=== PATIENT | female | born 1955 | race Caucasian/White ===

== ENCOUNTER 2016-10-10 12:31 | Inpatient (IN) | payer BC, OTHER ==
[~2016-10-10] VITALS: Ht 167.6 cm; Wt 132.0 kg
[~2016-10-10 12:31] MED LIST: ADVIN25050 INH; ALBUAER INH; CMD10 PO; CYAN10005 PO; HYT/2 PO; MOME50SP5; OXYC-57 PO; SNG10 PO; SYN112 PO
[2016-10-10] MEDS ORDERED: ONDANSETRON INJ 2 MG/ML 2 ML VIAL IV STA ×2 (13:13→18:04)
[2016-10-10] MEDS ORDERED: MoRPHine SULFATE 4 MG/ML 1 ML CARP\\VIAL IV STA (13:13)
[2016-10-10] MEDS ORDERED: MOME6000 NAE (13:48)
[2016-10-10] MEDS ORDERED: CETI10TA84 PO (13:48)
[2016-10-10] MEDS ORDERED: FRS/40 PO (13:48)
[2016-10-10] MEDS ORDERED: MONT1TAB3 PO (13:48)
[2016-10-10] MEDS ORDERED: IBUP-103 PO (13:48)
[2016-10-10] MEDS ORDERED: LEVO150T9 PO (13:48)
[2016-10-10] MEDS ORDERED: RANI150T3 PO (13:48)
[2016-10-10] MEDS ORDERED: SYMIN INH (13:48)
[2016-10-10] MEDS ORDERED: POTA10CA28 PO (13:48)
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
[2016-10-10] MEDS ORDERED: ONDA4TAB10 SL (14:43)
[2016-10-10] MEDS ORDERED: OXYC-57 PO (14:43)
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
[2016-10-10] MEDS ORDERED: SODIUM CHLORIDE 0.9% 1000ML 1,000 ML IV STA ×2 (16:09→18:04)
[2016-10-10] MEDS ORDERED: OPTIRAY 320 IV PRN (16:15)
[2016-10-10 16:47] LABS: ISTAT CREATININE 0.9 mg/dl (0.6-1.3); ISTAT HEMOGLOBIN 10.5 g/dl (12.0-16.0); ISTAT IONIZED CALCIUM 1.15 mmol/l (1.12-1.32)
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
[2016-10-10 17:59] LABS: BASO % 0.1 %; BASO ABS # 0.01 K/uL (0-0.2); COMPLETE YES; HEMATOCRIT 32.7 % (37-47); IG% 0.3 %; LYMPH % 4.1 %; LYMPH ABS # 0.51 K/uL (1.2-3.4); MEAN CELL VOLUME 93.2 fL (80-100); MEAN CORPUSCULAR HEMOGLOBIN 31.1 pg (25-34); MEAN CORPUSCULAR HGB CONC 33.3 g/dl (32-36); MONO % 3.8 %; NEUT % 91.7 %; PLATELET COUNT 192 K/uL (130-400); RED BLOOD COUNT 3.51 M/uL (4.2-5.4); WHITE BLOOD COUNT 12.44 K/uL (4.8-10.8)
[2016-10-10 18:11] LABS: PARTIAL THROMBOPLASTIN RATIO 0.8; PROTHROMBIN TIME (PATIENT) 10.9 SECONDS (9.0-12.0)
[2016-10-10] MEDS ORDERED: MoRPHine SULFATE 4 MG/ML 1 ML CARP\\VIAL IV PRN (18:15)
[2016-10-10 18:16] LABS: BUN/CREATININE RATIO 22.4 (10-20); CALCIUM 8.3 mg/dl (8.5-10.1); CREATININE 0.95 mg/dl (0.60-1.20)
[2016-10-10 18:21] LABS: POTASSIUM 4.1 mmol/L (3.5-5.1)
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
[2016-10-10] MEDS ORDERED: ONDANSETRON INJ 2 MG/ML 2 ML VIAL IV PRN (19:15)
[2016-10-10] MEDS ORDERED: IBUPROFEN 200 MG TAB PO PRN (19:15)
[2016-10-10] MEDS ORDERED: OXYCODONE/ACETAMINOPHEN 5-325 TAB PO PRN (19:15)
[2016-10-10] MEDS: MoRPHine SULFATE 4 MG/ML 1 ML CARP\\VIAL IV PRN (20:15)
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
[2016-10-10 21:00] VITALS: BP 137/82; PULSE 89; TEMP 37; O2SAT 97; Ht 167.6 cm; Wt 132.0 kg
[2016-10-10] MEDS: POTASSIUM CHLORIDE 10 MEQ TABCR PO SCH (21:00)
[2016-10-10] MEDS: ONDANSETRON 4MG OD TAB SL SCH (21:22)
[2016-10-10 22:47] LABS: HEMATOCRIT 28.4 % (37-47)
[2016-10-10 23:20] VITALS: BP 125/89; PULSE 103; O2SAT 98
[2016-10-10] MEDS: SODIUM CHLORIDE 0.9% 1000ML 1,000 ML IV SCH (23:35)
[2016-10-10] MEDS ORDERED: NURSING VERBAL MED ORDER ONE (23:45)
[2016-10-10] MEDS ORDERED: PROMETHAZINE HCL INJ 25 MG in SODIUM CHLORIDE 0.9% 50ML 50 ML IV STA (23:57)
[2016-10-11] MEDS: MoRPHine SULFATE 4 MG/ML 1 ML CARP\\VIAL IV PRN ×3 (00:16→04:37)
[2016-10-11 03:37] VITALS: BP 115/79; PULSE 99; TEMP 36.8; O2SAT 95
[2016-10-11] MEDS: ONDANSETRON 4MG OD TAB SL SCH ×5 (04:09→20:25)
[2016-10-11] MEDS: LEVOTHYROXINE 150 MCG TAB PO SCH (05:53)
[2016-10-11] MEDS: SODIUM CHLORIDE 0.9% 1000ML 1,000 ML IV SCH (05:54)
[2016-10-11 08:01] VITALS: BP 123/73; PULSE 93; TEMP 37; O2SAT 98
--- NOTE | 2016-10-11 08:15 | SURGERY PROGRESS NOTE ---
DATE: 10/11/2016 Angela is resting comfortably, although as expected she has more generalized pain and aches than she had yesterday. Her last vitals showed a temperature of 36.8, a pulse 99, respirations 16, blood pressure 115/79, O2 sats 95 on room air. Her I\T\O she had 400 mL of urine overnight. The physical findings the hematoma in the right breast area is unchanged as far as size. It seems to be more dependent posteriorly going around the rib cage, but certainly no tenderness significant, not expansion. The rest of the exam is pretty much unchanged. Laboratory younger this morning's lab is pending, but her hemoglobin has fairly been stable considering dilution factor from IV fluid as at about 10 and I think we can stop getting q.8h. Hemoglobin especially if the next one that is easily drawn is stable. As far as sending the patient home she is still requiring some morphine today for pain management. She said she would like to try some Percocet later on. If this suffices with Percocet and she is comfortable she certainly can be discharged. I advised her to follow up in our office in about a week and we would follow up on her breast tissue, that this may actually become more solid and may even need to be aspirated depending on the clinical picture. Will advance to regular diet at this time.
[2016-10-11] MEDS: BUDESONIDE/FORMOTEROL FUMARATE 160/4.5 60 PUFFS/INHALER INH SCH ×2 (08:48→20:32)
[2016-10-11] MEDS: MONTELUKAST SOD 10 MG TAB PO SCH (08:49)
[2016-10-11] MEDS: POTASSIUM CHLORIDE 10 MEQ TABCR PO SCH ×2 (08:50→20:28)
[2016-10-11] MEDS: RANITIDINE HCL 150 MG TAB PO SCH (08:50)
[2016-10-11] MEDS: CETIRIZINE HCL 10 MG TAB PO SCH (08:51)
[2016-10-11] MEDS: FUROSEMIDE 40 MG TAB PO SCH (08:51)
[2016-10-11] MEDS: CYANOCOBALAMIN 500 MCG TAB (VIT B-12) PO SCH (08:51)
[2016-10-11] MEDS: OXYCODONE/ACETAMINOPHEN 5-325 TAB PO PRN ×4 (09:33→23:24)
[2016-10-11 15:18] VITALS: BP 122/84; PULSE 102; TEMP 37.1; O2SAT 94
--- NOTE | 2016-10-11 16:25 | Progress Note ---
Progress Note Pain control marginal on 1 Percocet, will increase to 2 tab HR 90-100, BP 122/84, O2 94% H&H 8.5 right breast hematoma, left knee hematoma stable with drifting of H&H and tachycardia, will keep here overnight
[2016-10-11 23:34] VITALS: BP 129/80; PULSE 97; TEMP 36.9; O2SAT 94
[2016-10-12] VITALS (10 sets, daily range): BP systolic 119–137; BP diastolic 69–93; PULSE 78–97; TEMP 36.6–37.2; O2SAT 92–96
[2016-10-12] MEDS: OXYCODONE/ACETAMINOPHEN 5-325 TAB PO PRN ×5 (03:40→23:34)
[2016-10-12] MEDS: ONDANSETRON 4MG OD TAB SL SCH ×4 (03:40→21:49)
[2016-10-12] MEDS: LEVOTHYROXINE 150 MCG TAB PO SCH (05:51)
[2016-10-12 07:40] LABS: HEMATOCRIT 22.8 % (37-47)
--- NOTE | 2016-10-12 07:47 | SURGERY PROGRESS NOTE ---
DATE: 10/12/2016 HISTORY OF PRESENT ILLNESS: We kept Angela yesterday and we plan to send her tomorrow because she was little tachycardic and her hemoglobin had dropped to 8.5, a little bit more than I would expect from dilution. This morning, she is complaining of multiple pains as one would expect second days posttraumatic. She aches all over but most significantly her pain is accentuated in about the left knee area where she has a large hematoma. Although her initial x-rays were negative, this hematoma is not tense, but given significant past history of multiple orthopedic issues including a right knee replacement, I recommend that we probably have Dr. Balderas see her since he is familiar with her regarding this. On the right breast area, the ecchymosis is more pronounced as one would expect and it goes all the way towards the right chest area. She does have more ecchymosis areas in her right leg in patches. LABORATORY DATA: Her laboratory this morning is pending. PHYSICAL EXAMINATION: Her vitals showed a temperature of 36.9, pulse 97, respirations 16, blood pressure 129/80. ASSESSMENT AND PLAN: As I told Angela I think before we send her home we wanted to have good handle on her pain medicine and also her hemoglobin and then make sure it does not continuously precipitate. She is tolerating a regular diet and she had 700 urine output yesterday. CHRISTOPHER
[2016-10-12] MEDS: CETIRIZINE HCL 10 MG TAB PO SCH (08:46)
[2016-10-12] MEDS: CYANOCOBALAMIN 500 MCG TAB (VIT B-12) PO SCH (08:46)
[2016-10-12] MEDS: MONTELUKAST SOD 10 MG TAB PO SCH (08:46)
[2016-10-12] MEDS: RANITIDINE HCL 150 MG TAB PO SCH (08:46)
[2016-10-12] MEDS: POTASSIUM CHLORIDE 10 MEQ TABCR PO SCH ×2 (08:47→21:50)
[2016-10-12] MEDS: FUROSEMIDE 40 MG TAB PO SCH (08:47)
[2016-10-12] MEDS: BUDESONIDE/FORMOTEROL FUMARATE 160/4.5 60 PUFFS/INHALER INH SCH (08:47)
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
[2016-10-13] MEDS: ONDANSETRON 4MG OD TAB SL SCH ×2 (04:00→10:00)
[2016-10-13] MEDS: OXYCODONE/ACETAMINOPHEN 5-325 TAB PO PRN ×3 (06:20→14:50)
[2016-10-13] MEDS: LEVOTHYROXINE 150 MCG TAB PO SCH (06:20)
[2016-10-13 07:36] LABS: HEMATOCRIT 25.7 % (37-47)
--- NOTE | 2016-10-13 07:55 | SURGERY PROGRESS NOTE ---
DATE: 10/13/2016 HISTORY OF PRESENT ILLNESS: Angela feels much better than she had yesterday. She did receive 1 unit of blood. She has been up and around. She does not feel dizzy, although as the days go on, she feels more aches and pains, generalized. PHYSICAL EXAMINATION: Her last vitals showed a temperature of 37.1, pulse 97, respirations 18, blood pressure 125/74, O2 sats 94 on room air. The abdomen is unchanged. The right breast area is pretty much unchanged, although as expected it is more ecchymotic, but it is not tense. The left knee hematoma area is pretty much unchanged as is the right lower extremity soft tissue ecchymosis. LABORATORY DATA: Laboratory-younger, her hemoglobin this morning is 8.4. It was 7.7 yesterday before transfusion. ASSESSMENT AND PLAN: At this point, Angela feels like she can go home and I would probably agree she can probably be discharged. [place] to go around. She has a walker at home when she had her total knee. She is not dizzy. At this point, I would recommend some iron replacement, some multivitamins with iron, and make sure that there is evidence of any lightheadedness at home or feeling weak that certainly should come back and see us, otherwise we will see her again next week and at that time draw a hemoglobin, but in this time, I do not see there is any further evidence of any active bleeding. The orthopedic input was appreciated.
[2016-10-13 08:19] VITALS: BP 106/56; PULSE 87; TEMP 36.7; O2SAT 95
[2016-10-13] MEDS: FUROSEMIDE 40 MG TAB PO SCH (08:58)
[2016-10-13] MEDS: MONTELUKAST SOD 10 MG TAB PO SCH (08:59)
[2016-10-13] MEDS: CETIRIZINE HCL 10 MG TAB PO SCH (08:59)
[2016-10-13] MEDS: CYANOCOBALAMIN 500 MCG TAB (VIT B-12) PO SCH (08:59)
[2016-10-13] MEDS: BUDESONIDE/FORMOTEROL FUMARATE 160/4.5 60 PUFFS/INHALER INH SCH (09:00)
[2016-10-13] MEDS: POTASSIUM CHLORIDE 10 MEQ TABCR PO SCH (09:00)
[2016-10-13] MEDS: RANITIDINE HCL 150 MG TAB PO SCH (09:01)
[2016-10-13] MEDS ORDERED: OXYC-57 PO (13:45)
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
[2016-10-13 15:03] VITALS: BP 106/56; PULSE 87; TEMP 36.7; O2SAT 95
[2016-10-13 15:40] VITALS: BP 130/81; PULSE 81; TEMP 36.8; O2SAT 97
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
[2016-11-03] MEDS ORDERED: CEPH500C2 PO (08:21)
== END 2016-10-13 16:45 | disposition home or self-care (01) | DRG 315 ==
LOC: ENRESERVDT → ENRESERVTM → EDBD 12:31 → C.EDB 12:32 → C.MSN 19:50
PROVIDERS: ADMIT Surgery; ATTEND Surgery
DX: I95.9 Hypotension, unspecified (principal); R71.0 Precipitous drop in hematocrit; S22.32XA Fracture of one rib, left side, initial encounter for closed fracture; R00.0 Tachycardia, unspecified; R42 Dizziness and giddiness; S20.01XA Contusion of right breast, initial encounter; S80.02XA Contusion of left knee, initial encounter; S80.11XA Contusion of right lower leg, initial encounter; V43.53XA Car driver injured in collision with pick-up truck in traffic accident, initial encounter; Y92.410 Unspecified street and highway as the place of occurrence of the external cause; G89.11 Acute pain due to trauma; J45.909 Unspecified asthma, uncomplicated; I10 Essential (primary) hypertension; E03.9 Hypothyroidism, unspecified; I89.0 Lymphedema, not elsewhere classified; M17.12 Unilateral primary osteoarthritis, left knee; K43.9 Ventral hernia without obstruction or gangrene; Z96.651 Presence of right artificial knee joint; Z86.718 Personal history of other venous thrombosis and embolism; Z79.51 Long term (current) use of inhaled steroids; Z79.891 Long term (current) use of opiate analgesic; Z79.899 Other long term (current) drug therapy

== ENCOUNTER → 2016-10-20 | Outpatient (CLI) | payer OTHER ==
[~2016-10-20] MED LIST changes: -ADVIN25050 INH; -ALBUAER INH; +CEPH500C2 PO; +CETI10TA84 PO; -CMD10 PO; +FRS/40 PO; +IBUP-103 PO; +LEVO150T9 PO; -MOME50SP5; +MOME6000 NAE; +MONT1TAB3 PO; +ONDA4TAB10 SL; +POTA10CA28 PO; +RANI150T3 PO; -SNG10 PO; +SYMIN INH; -SYN112 PO
[2016-10-20 12:50] LABS: BASO % 0.2 %; BASO ABS # 0.01 K/uL (0-0.2); COMPLETE YES; EOS % 1.9 %; HEMATOCRIT 28.3 % (37-47); IG% 0.2 %; LYMPH % 11.7 %; LYMPH ABS # 0.55 K/uL (1.2-3.4); MEAN CELL VOLUME 92.8 fL (80-100); MEAN CORPUSCULAR HEMOGLOBIN 29.8 pg (25-34); MEAN CORPUSCULAR HGB CONC 32.2 g/dl (32-36); MEAN PLATELET VOLUME 9.7 fL (7.4-10.4); MONO % 9.1 %; NEUT % 76.9 %; PLATELET COUNT 288 K/uL (130-400); RED BLOOD COUNT 3.05 M/uL (4.2-5.4)
--- NOTE | 2016-10-21 16:03 | CODING QUERY NO DIAGNOSIS ---
TREATMENT RENDERED WITHOUT A DIAGNOSIS To promote full compliance with coding requirements relating to patient care, physician participation is requested in all cases of death surveys coder uncertainty. Please assist us with providing a diagnosis/symptom for the test(s) below: A diagnosis/symptom was not documented on your Order. A valid diagnosis/symptom is required to bill all insurances. Please remember that we are unable to code a diagnosis of rule out, probable, possible, questionable, or suspected. Tests that require a diagnosis: * CBC W/ AUTO DIFF DIAGNOSIS: Provider Signature: Date: Thank you Liss [place] [employer] Once completed, please kindly fax back to [phone] For questions please call [phone]
== END | disposition home or self-care (01) ==
LOC: C.LAB 11:30
PROVIDERS: ATTEND Surgery
DX: N64.89 Other specified disorders of breast (principal); S80.02XA Contusion of left knee, initial encounter; V89.2XXA Person injured in unspecified motor-vehicle accident, traffic, initial encounter

== ENCOUNTER 2021-12-29 08:34 | Observation (INO) ==
--- NOTE | 2021-05-14 15:43 | PAT Medication Instructions ---
Medication Instructions Date of Service May 14, 2021 Home Medications Medication Instructions Recorded cyclobenzaprine 10 mg tablet 10 mg PO TID PRN #15 tab 07/25/18 cetirizine 10 mg tablet (Zyrtec) 10 mg PO HS cyanocobalamin (vitamin B-12) 1,000 mcg tablet (Vitamin B-12) 1,000 mcg PO QAM cyclobenzaprine 10 mg tablet 10 mg PO TID PRN fluticasone 250 mcg-salmeterol 50 mcg/dose blistr powdr for inhalation (Advair Diskus) 1 inh INHALATION BID furosemide 40 mg tablet 40 mg PO QPM ibuprofen 200 mg tablet (Advil) 400 - 600 mg PO Q6H PRN levothyroxine 175 mcg tablet 175 mcg PO QAM montelukast 10 mg tablet 10 mg PO PM terazosin 2 mg capsule 2 mg PO HS acetazolamide 250 mg tablet 250 mg PO BID albuterol sulfate 0.63 mg/3 mL solution for nebulization 0.63 mg INHALATION Q4H PRN albuterol sulfate 90 mcg/actuation aerosol inhaler 1 inh INHALATION QID PRN hyoscyamine sulfate 0.125 mg tablet (Levsin) 0.125 mg PO BID PRN meloxicam 15 mg tablet 15 mg PO QPM potassium chloride 20 mEq tablet,extended release 20 meq PO QAM ASK your surgeon for instructions ibuprofen 200 mg tablet (Advil) 400 - 600 mg PO Q6H PRN meloxicam 15 mg tablet 15 mg PO QPM ASK your prescriber and surgeon acetazolamide 250 mg tablet 250 mg PO BID DO NOT take the morning of surgery cyanocobalamin (vitamin B-12) 1,000 mcg tablet (Vitamin B-12) 1,000 mcg PO QAM cyclobenzaprine 10 mg tablet 10 mg PO TID PRN hyoscyamine sulfate 0.125 mg tablet (Levsin) 0.125 mg PO BID PRN potassium chloride 20 mEq tablet,extended release 20 meq PO QAM Take morning of surgery With a small sip of water, OTHERWISE NOTHING TO EAT OR DRINK AFTER MIDNIGHT: fluticasone 250 mcg-salmeterol 50 mcg/dose blistr powdr for inhalation (Advair Diskus) 1 inh INHALATION BID levothyroxine 175 mcg tablet 175 mcg PO QAM albuterol sulfate 0.63 mg/3 mL solution for nebulization 0.63 mg INHALATION Q4H PRN (if needed) albuterol sulfate 90 mcg/actuation aerosol inhaler 1 inh INHALATION QID PRN (if needed) Please bring rescue inhaler with you to hospital day of surgery if possible Take evening before surgery cetirizine 10 mg tablet (Zyrtec) 10 mg PO HS cyclobenzaprine 10 mg tablet 10 mg PO TID PRN (if needed) fluticasone 250 mcg-salmeterol 50 mcg/dose blistr powdr for inhalation (Advair Diskus) 1 inh INHALATION BID furosemide 40 mg tablet 40 mg PO QPM montelukast 10 mg tablet 10 mg PO PM terazosin 2 mg capsule 2 mg PO HS albuterol sulfate 0.63 mg/3 mL solution for nebulization 0.63 mg INHALATION Q4H PRN (if needed) albuterol sulfate 90 mcg/actuation aerosol inhaler 1 inh INHALATION QID PRN (if needed) hyoscyamine sulfate 0.125 mg tablet (Levsin) 0.125 mg PO BID PRN (if needed) Other Notes If you have any questions please call us at [phone] or [phone] or [phone] or [phone]
--- NOTE | 2021-05-18 11:36 | Anesthesiology Consultation ---
Date of Service May 18, 2021 Assessment & Plan (1) Encounter for pre-operative examination: - PCP note (04/20/21): "low risk for surgical complications" - COVID screening: Per assessment on 05/18: Travel screen negative, no known COVID-19 positive contacts or current COVID-19 related symptoms. Patient vaccinated. Surgeon arranging preop COVID testing. Awaiting results. Chart Review Chart Review: Acceptable Risk for Surgery and Patient seen in Pre Admission Testing Teaching & Discussion Pre-Anesthesia Teaching/Discussion Notes: Instructed NPO after midnight before surgery,except medications with 15 cc of water. Medication instructions provided according to the PAT guidelines. History Surgery Operation Date: 06/16/21 07:00 Proposed Procedures p Left Total Knee Arthroplasty - Bro Oliva MD Height/Weight Height: 5 ft 5.5 in Weight: 115.7 kg Allergies Allergy/AdvReac Type Severity Reaction Status Date / Time levofloxacin Allergy Severe Anaphylaxis Verified 05/13/21 13:19 Medications Home Medications Medication Instructions Recorded Confirmed Last Taken cetirizine 10 mg tablet (Zyrtec) 10 mg PO HS 07/25/18 05/13/21 Unknown cyanocobalamin (vitamin B-12) 1,000 mcg PO QAM 07/25/18 05/13/21 Unknown 1,000 mcg tablet (Vitamin B-12) cyclobenzaprine 10 mg tablet 10 mg PO TID PRN #15 tab 07/25/18 05/13/21 Unknown fluticasone 250 mcg-salmeterol 50 1 inh INHALATION BID 07/25/18 05/13/21 Unknown mcg/dose blistr powdr for inhalation (Advair Diskus) furosemide 40 mg tablet 40 mg PO QPM 07/25/18 05/13/21 Unknown ibuprofen 200 mg tablet (Advil) 400 - 600 mg PO Q6H PRN 07/25/18 05/13/21 Unknown levothyroxine 175 mcg tablet 175 mcg PO QAM 07/25/18 05/13/21 Unknown montelukast 10 mg tablet 10 mg PO PM 07/25/18 05/13/21 Unknown terazosin 2 mg capsule 2 mg PO HS 07/25/18 05/13/21 Unknown acetazolamide 250 mg tablet 250 mg PO BID 05/13/21 05/13/21 Unknown albuterol sulfate 0.63 mg/3 mL 0.63 mg INHALATION Q4H PRN 05/13/21 05/13/21 Unknown solution for nebulization albuterol sulfate 90 mcg/actuation 1 inh INHALATION QID PRN 05/13/21 05/13/21 Unknown aerosol inhaler hyoscyamine sulfate 0.125 mg 0.125 mg PO BID PRN 05/13/21 05/13/21 Unknown tablet (Levsin) meloxicam 15 mg tablet 15 mg PO QPM 05/13/21 05/13/21 Unknown potassium chloride 20 mEq 20 meq PO QAM 05/13/21 05/13/21 Unknown tablet,extended release Past Medical History Medical History Arthritis Asthma Stable, no inhaler use "for a while" GERD (gastroesophageal reflux disease) controlled Hx of deep venous thrombosis LLE (35+ years ago)- postop Hx of pancreatitis 10 years ago Hyperlipidemia Hypertension Hypothyroidism Lumbar herniated disc Lymphedema Morbid obesity 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 Exercise / Class Metabolic Activity III < 4 Walking/Shop/Light housework Past Family History Family History Mother Family history of diabetes mellitus Family hx of colon cancer Brother Family history of diabetes mellitus Other No family history of adverse response to anesthesia Past Surgical History Surgical History H/O oophorectomy History of ankle surgery Right Left ligament repair History of bowel resection r/t bowel obstruction History of cholecystectomy History of colonoscopy History of ERCP History of hysterectomy History of total knee replacement Right (2010- done under spinal anesthesia; [facility]) [place] teeth removed Past Anesthesia History No Hx of Anesthesia Complications and No Family Hx of Anesthesia Complications History of PONV No Hx of PONV and No Hx of Motion Sickness Social History Smoking Status: Former smoker tobacco type: cigarettes Do You Dip or Chew Tobacco: No Smoking End Date: Quit 40+ years ago Hx Alcohol Use: Yes alcohol intake frequency: holidays/special occasions only substance use type: does not use Review of Systems Patient denies chest pain, shortness of breath, fever, chills, cough, wheezing, palpitations. Physical Exam Vital Signs VITALS BP 154/87 P 87 TEMP 98.4 SP02 94%RA RESP 16 PHYSICAL Full cervical extension range of motion. Full TMJ range of motion. TMD 4 finger breaths Mallampati Score 2 Dentition: missing molar, + crown Lungs: clear throughout to auscultation Cardiac: regular rate and rhythm, no murmurs noted Spine: normal Carotid arteries: negative bruit Extremities: + LE lymphedema Lab Results Anesthesia Preop Results Results Anesthesia Widget: WBC 5.68 K/uL (4.8-10.8) 05/18/21 Hgb 13.6 g/dL (12.0-16.0) 05/18/21 Hct 42.5 % (37-47) 05/18/21 Plt 181 K/uL (130-400) 05/18/21 Na 141 mmol/L (136-145) 05/18/21 K 3.3 mmol/L (3.5-5.1) L 05/18/21 Cl 110 mmol/L (98-107) H 05/18/21 CO2 25 mmol/L (21-32) 05/18/21 BUN 31 mg/dl (7-18) H 05/18/21 Creat 0.93 mg/dl (0.6-1.2) 05/18/21 Glucose Level 108 mg/dl (70-99) H 05/18/21 PT 10.0 Seconds (9.0-12.0) 05/18/21 PTT 24.3 Seconds (21.0-31.0) 05/18/21 INR 1.0 (0.9-1.1) 05/18/21 Blood Type A Positive 05/18/21 Antibody Screen NEGATIVE 05/18/21 Testing Electrocardiogram Date: 05/18/21 NSR at 76bpm. unconfirmed report. Chest X-Ray Date: 05/18/21 FINDINGS: Lung volumes are normal. Lungs are clear. There is no pneumothorax or pleural effusion. Mild cardiomegaly is unchanged. Mediastinal contours are normal. There is no evidence for pulmonary edema. Bilateral lower lung opacities reflect epicardial fat pad. IMPRESSION: No acute cardiopulmonary findings. No change in appearance of the chest. Other Testing Lumbar spine MRI (04/27/21) A 12 mm right laterally extruded disc fragment at L1-L2 contributes to severe right-sided subarticular stenosis and impinges the exiting right L1 nerve root. Lumbosacral spondylosis at additional levels. Degenerative disc disease with multilevel degenerative endplate change. No destructive bony process is identified. Per patient, significant improvement in LBP after injection.
--- NOTE | 2021-09-30 15:58 | PAT Medication Instructions ---
Medication Instructions Date of Service September 30, 2021 Home Medications Medication Instructions Recorded cyclobenzaprine 10 mg tablet 10 mg PO TID PRN #15 tab 07/25/18 cetirizine 10 mg tablet (Zyrtec) 10 mg PO HS cyanocobalamin (vitamin B-12) 1,000 mcg tablet (Vitamin B-12) 1,000 mcg PO QAM cyclobenzaprine 10 mg tablet 10 mg PO TID PRN fluticasone 250 mcg-salmeterol 50 mcg/dose blistr powdr for inhalation (Advair Diskus) 1 inh INHALATION BID furosemide 40 mg tablet 40 mg PO QPM ibuprofen 200 mg tablet (Advil) 400 - 600 mg PO Q6H PRN levothyroxine 175 mcg tablet 175 mcg PO QAM montelukast 10 mg tablet 10 mg PO PM terazosin 2 mg capsule 2 mg PO HS acetazolamide 250 mg tablet 250 mg PO BID albuterol sulfate 0.63 mg/3 mL solution for nebulization 0.63 mg INHALATION Q4H PRN albuterol sulfate 90 mcg/actuation aerosol inhaler 1 inh INHALATION QID PRN hyoscyamine sulfate 0.125 mg tablet (Levsin) 0.125 mg PO BID PRN meloxicam 15 mg tablet 15 mg PO QPM potassium chloride 20 mEq tablet,extended release 20 meq PO QAM ASK your surgeon for instructions ibuprofen 200 mg tablet (Advil) 400 - 600 mg PO Q6H PRN meloxicam 15 mg tablet 15 mg PO QPM ASK your prescriber and surgeon acetazolamide 250 mg tablet 250 mg PO BID DO NOT take the morning of surgery cyanocobalamin (vitamin B-12) 1,000 mcg tablet (Vitamin B-12) 1,000 mcg PO QAM cyclobenzaprine 10 mg tablet 10 mg PO TID PRN potassium chloride 20 mEq tablet,extended release 20 meq PO QAM hyoscyamine sulfate 0.125 mg tablet (Levsin) 0.125 mg PO BID PRN Take morning of surgery With a small sip of water, OTHERWISE NOTHING TO EAT OR DRINK AFTER MIDNIGHT: fluticasone 250 mcg-salmeterol 50 mcg/dose blistr powdr for inhalation (Advair Diskus) 1 inh INHALATION BID levothyroxine 175 mcg tablet 175 mcg PO QAM albuterol sulfate 0.63 mg/3 mL solution for nebulization 0.63 mg INHALATION Q4H PRN(use if needed; please bring with you to hospital day of surgery if possible) albuterol sulfate 90 mcg/actuation aerosol inhaler 1 inh INHALATION QID PRN(use if needed; please bring with you to hospital day of surgery if possible) Take evening before surgery cetirizine 10 mg tablet (Zyrtec) 10 mg PO HS cyclobenzaprine 10 mg tablet 10 mg PO TID PRN fluticasone 250 mcg-salmeterol 50 mcg/dose blistr powdr for inhalation (Advair Diskus) 1 inh INHALATION BID furosemide 40 mg tablet 40 mg PO QPM montelukast 10 mg tablet 10 mg PO PM terazosin 2 mg capsule 2 mg PO HS albuterol sulfate 0.63 mg/3 mL solution for nebulization 0.63 mg INHALATION Q4H PRN(if needed) albuterol sulfate 90 mcg/actuation aerosol inhaler 1 inh INHALATION QID PRN(if needed) hyoscyamine sulfate 0.125 mg tablet (Levsin) 0.125 mg PO BID PRN Other Notes If you have any questions please call us at [phone] or [phone] or [phone] or [phone]
--- NOTE | 2021-12-14 15:08 | Anesthesiology Consultation ---
Date of Service December 14, 2021 Assessment & Plan (1) Encounter for pre-operative examination: - COVID screening: Per assessment on 12/14: No known COVID-19 positive contacts or current COVID-19 related symptoms. Travel screen negative. Patient vaccamy sanchez. Patient was Covid positive 11/01/21 ([facility]) > asymptomatic (pt was being tested through work, [facility] report scanned into [facility]). Surgeon arranging preop COVID testing. Awaiting results. - PCP office visit (12/11/21): "Patient is low for the listed procedure. Patient scheduled for pre op labs/testing 12/14/21. Patient is medically optimized and at acceptable risk for upcoming surgery pending pre op labs/testing are within normal limits." Chart Review Chart Review: Acceptable Risk for Surgery and Patient seen in Pre Admission Testing Teaching & Discussion Pre-Anesthesia Teaching/Discussion Notes: Instructed NPO after midnight before surgery,except medications with 15 cc of water. Medication instructions provided according to the PAT guidelines. History Surgery Operation Date: 07/14/21 07:50 Proposed Procedures p Left Total Knee Arthroplasty - Bro Oliva MD Operation Date: 08/18/21 07:00 Proposed Procedures p Left Total Knee Arthroplasty - Bro Oliva MD Operation Date: 10/13/21 07:00 Proposed Procedures p Left Total Knee Arthroplasty - Bro Oliva MD Operation Date: 12/29/21 10:35 Proposed Procedures p Left Total Knee Arthroplasty - Bro Oliva MD Height/Weight Height: 5 ft 5.5 in Weight: 108.8 kg Allergies Allergy/AdvReac Type Severity Reaction Status Date / Time levofloxacin Allergy Severe Anaphylaxis Verified 12/10/21 15:05 Medications Home Medications Medication Instructions Recorded Confirmed Last Taken cetirizine 10 mg tablet (Zyrtec) 10 mg PO HS 07/25/18 12/10/21 Unknown cyanocobalamin (vitamin B-12) 1,000 mcg PO QAM 07/25/18 12/10/21 Unknown 1,000 mcg tablet (Vitamin B-12) cyclobenzaprine 10 mg tablet 10 mg PO TID PRN #15 tab 07/25/18 12/10/21 Unknown fluticasone 250 mcg-salmeterol 50 1 inh INHALATION BID 07/25/18 12/10/21 Unknown mcg/dose blistr powdr for inhalation (Advair Diskus) furosemide 40 mg tablet 40 mg PO QPM 07/25/18 12/10/21 Unknown ibuprofen 200 mg tablet (Advil) 400 - 600 mg PO Q6H PRN 07/25/18 12/10/21 Unknown levothyroxine 175 mcg tablet 175 mcg PO QAM 07/25/18 12/10/21 Unknown montelukast 10 mg tablet 10 mg PO PM 07/25/18 12/10/21 Unknown terazosin 2 mg capsule 2 mg PO HS 07/25/18 12/10/21 Unknown acetazolamide 250 mg tablet 250 mg PO BID 05/13/21 12/10/21 Unknown albuterol sulfate 0.63 mg/3 mL 0.63 mg INHALATION Q4H PRN 05/13/21 12/10/21 Unknown solution for nebulization albuterol sulfate 90 mcg/actuation 1 inh INHALATION QID PRN 05/13/21 12/10/21 Unknown aerosol inhaler hyoscyamine sulfate 0.125 mg 0.125 mg PO BID PRN 05/13/21 12/10/21 Unknown tablet (Levsin) meloxicam 15 mg tablet 15 mg PO QPM 05/13/21 12/10/21 Unknown potassium chloride 20 mEq 20 meq PO QAM 05/13/21 12/10/21 Unknown tablet,extended release Past Medical History Medical History Arthritis Asthma Stable, no inhaler use "for a while" GERD (gastroesophageal reflux disease) controlled Hx of deep venous thrombosis LLE (35+ years ago) Hx of pancreatitis 10 years ago Hyperlipidemia Hypertension Hypothyroidism Lumbar herniated disc Lymphedema Morbid obesity 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 SARS-CoV-2 positive Covid positive 11/01/21 ([facility]) > asymptomatic (pt was being tested through work, [facility] report scanned into [facility]) Exercise / Class Metabolic Activity III < 4 Walking/Shop/Light housework Past Family History Family History Mother Family history of diabetes mellitus Family hx of colon cancer Brother Family history of diabetes mellitus Other No family history of adverse response to anesthesia Past Surgical History Surgical History (Reviewed 12/14/21 @ 15:31 by Dina Elizondo H/O oophorectomy History of ankle surgery Right Left ligament repair History of bowel resection r/t bowel obstruction History of cholecystectomy History of colonoscopy History of ERCP History of hysterectomy History of total knee replacement Right (2010- done under spinal anesthesia; [facility]) [place] teeth removed Past Anesthesia History No Hx of Anesthesia Complications and No Family Hx of Anesthesia Complications History of PONV No Hx of PONV and No Hx of Motion Sickness Social History Smoking Status: Former smoker tobacco type: cigarettes Do You Dip or Chew Tobacco: No Smoking End Date: Quit 40+ years ago Hx Alcohol Use: Yes alcohol intake frequency: holidays/special occasions only Hx Substance Use: No substance use type: does not use Review of Systems Patient denies chest pain, shortness of breath, dyspnea on exertion, fever, chills, cough, wheezing, palpitations. Physical Exam Vital Signs VITALS BP 135/77 P 80 TEMP 98.4 SP02 95%RA RESP 18 PHYSICAL Full cervical extension range of motion. Full TMJ range of motion. TMD 3.5 finger breaths Mallampati Score 2 Dentition: intact, + crowns Lungs: clear throughout to auscultation Cardiac: regular rate and rhythm, no murmurs noted Spine: normal Carotid arteries: negative bruit Extremities: + lymphedema Lab Results Anesthesia Preop Results Results Anesthesia Widget: WBC 4.37 K/uL (4.8-10.8) L 12/14/21 Hgb 13.3 g/dL (12.0-16.0) 12/14/21 Hct 40.7 % (37-47) 12/14/21 Plt 182 K/uL (130-400) 12/14/21 Na 142 mmol/L (136-145) 12/14/21 K 3.3 mmol/L (3.5-5.1) L 12/14/21 Cl 111 mmol/L (98-107) H 12/14/21 CO2 25 mmol/L (21-32) 12/14/21 BUN 25 mg/dl (6-23) H 12/14/21 Creat 0.86 mg/dl (0.6-1.2) 12/14/21 Glucose Level 88 mg/dl (70-99(Fasting)) 12/14/21 PT 10.6 Seconds (9.0-12.0) 12/14/21 PTT 25.7 Seconds (21.0-31.0) 12/14/21 INR 1.0 (0.9-1.1) 12/14/21 Blood Type A Positive 12/14/21 Antibody Screen NEGATIVE 12/14/21 Testing Electrocardiogram Date: 05/18/21 NSR at 76bpm. Chest X-Ray Date: 05/18/21 FINDINGS: Lung volumes are normal. Lungs are clear. There is no pneumothorax or pleural effusion. Mild cardiomegaly is unchanged. Mediastinal contours are normal. There is no evidence for pulmonary edema. Bilateral lower lung opacities reflect epicardial fat pad. IMPRESSION: No acute cardiopulmonary findings. No change in appearance of the chest. Other Testing Lumbar spine MRI (04/27/21) A 12 mm right laterally extruded disc fragment at L1-L2 contributes to severe right-sided subarticular stenosis and impinges the exiting right L1 nerve root. Lumbosacral spondylosis at additional levels. Degenerative disc disease with multilevel degenerative endplate change. No destructive bony process is identified. Per patient, significant improvement in LBP after injection.
[~2021-12-29 08:34] MED LIST changes: +ACETAMINOPHEN 500 MG TAB PO SCH; -CEPH500C2 PO; -CETI10TA84 PO; +CHECK CLONIDINE PATCH PLACEMENT SCH; -CYAN10005 PO; +CeleBREX 200 MG CAP PO SCH; +FAMOTIDINE 20 MG TAB PO SCH; -FRS/40 PO; +GABAPENTIN 600 MG DOSE PO SCH; -HYT/2 PO; -IBUP-103 PO; -LEVO150T9 PO; +LR 500ML BOLUS, THEN 15ML/HR IV SCH; +LR 60ML/HR IV SCH; +METOCLOPRAMIDE HCL 10 MG TABLET PO SCH; -MOME6000 NAE; -MONT1TAB3 PO; -ONDA4TAB10 SL; -OXYC-57 PO; -POTA10CA28 PO; -RANI150T3 PO; +ROPIVACAINE 0.5% HCL/PF 150 MG, BUPIVACAINE 0.75% MPF 20 ML, EPINEPHrine 0.15 MG, Ketor... INFIL SCH; -SYMIN INH; +TRANEXAMIC ACID 1,000 MG **IV Intra-op IV SCH; +TRANEXAMIC ACID 1,000 MG **IV Pre-op IV SCH; +ceFAZolin 2000MG 2,000 MG/15 ML SYR IV SCH; +cloNIDine HCL 0.1 MG/24 HR TRANSDERM SYS TD SCH; +dexAMETHasone 4 MG TAB PO SCH; +oxyCODONE HCL 10 MG TABCR (OxyCONTIN) PO SCH; +traMADol HCL 50 MG TABLET PO SCH
[2021-12-29] MEDS ORDERED: EPINEPHrine INJ 1 MG/ML AMP ONE (09:05)
[2021-12-29] MEDS ORDERED: ROPIVACAINE 0.5% 5 MG/ML 30 ML VIAL ONE (09:05)
[2021-12-29] MEDS ORDERED: MIDAZOLAM HCL 1 MG/ML 2ML VIAL ONE (10:15)
[2021-12-29] MEDS ORDERED: fentaNYL citrate 100 MCG/2 ML VIAL ONE (10:15)
[2021-12-29] MEDS ORDERED: PROPOFOL IV EMULSION 10 MG/ML 20 ML VIAL IV ONE (10:19)
--- NOTE | 2021-12-29 10:20 | History & Physical Bridge Note ---
Date of Service December 29, 2021 History & Physical Bridge Note I have examined the patient, reviewed the History & Physical and in the interval since the performance of the History & Physical I have noted the following changes of clinical significance: no changes noted
[2021-12-29] MEDS ORDERED: ORTHO JOINT ANESTHETIC ONE (10:41)
--- NOTE | 2021-12-29 14:20 | Operative Report ---
Post Operative Report Pre & Post Diagnosis Operation Date: 07/14/21 07:50 <No data on this case meets the specified criteria> Operation Date: 08/18/21 07:00 <No data on this case meets the specified criteria> Operation Date: 10/13/21 07:00 <No data on this case meets the specified criteria> Operation Date: 12/29/21 10:30 Pre-Op Diagnosis: Left Knee Degenerative Joint Disease Post-Op Diagnosis: Left Knee Degenerative Joint Disease I identified the patient and participated in the time-out.: Yes Procedure Operation Date: 07/14/21 07:50 <No data on this case meets the specified criteria> Operation Date: 08/18/21 07:00 <No data on this case meets the specified criteria> Operation Date: 10/13/21 07:00 <No data on this case meets the specified criteria> Operation Date: 12/29/21 10:30 Actual Procedures p Left Total Knee Arthroplasty(Left) - Bro Oliva MD Surgeon Bro Oliva MD Restaurant Team Member GABRIELA Powell. Antonio Suarez fellow. Estimated Blood Loss 30 Findings Consistent with Post-Op Diagnosis Specimens Resected bone and soft tissue Drains None Anesthesia Type MAC Spinal Regional Complications none Disposition Accompanied Patient To Recovery: No Disposition: Recovery Room Indications Angela is 66. She has severe osteoarthritis of her left knee lateral compartment refractory to nonsurgical methods of management. She has had a prior knee replaced. She has elected proceed with operative intervention. She has lymphedema and obesity which caused her leg to be enlarged. She has no history of cellulitis or breakdown. Description of Procedure Informed consent obtained. Patient identified. She identified the operative site as the left knee. I marked with my initials. A preoperative surgical timeout was performed. A preop dose of IV antibiotics was given. She was taken to the operating room positioned supine on the operating room table. A tourniquet was applied to the left thigh. A padded bump beneath the left calf and a another bump under the left hip. The exam under anesthesia revealed range of motion 0 to 110 degrees of flexion with trace MCL laxity and no LCL laxity. Skin was intact with thick adipose layer combined with some edema which was mild to 1+ max when pressed upon. The leg was prescribed and prepped and draped in usual sterile fashion. The foot was excluded from the field. The limb was exsanguinated with the Esmarch tourniquet inflated 275 mmHg. DVT prophylaxis with mechanical devices intraoperatively. Lovenox early mobility and then mechanical devices postoperatively. TXA given. A midline longitudinal incision was made about 25 3 cm in length. Electrocautery was utilized down to the adipose layer which was 2 to 3 inches in depth. The extensor mechanism was identified and a small medial flap was elevated. A medial parapatellar arthrotomy was performed. Minimal medial release off the proximal tibia was performed. Synovitis was noted and this was excised as encountered throughout the knee. Soft tissue on the anterior aspect the distal femur was resected. The synovial reflection in the lateral gutter was released. The retropatellar fat pad was resected and marginal osteophytes throughout the knee were removed particularly in the lateral compartment. 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 The lateral meniscus was deficient and and there was extensive scarring laterally which required careful dissection and removal. Notch osteophytes were removed. The patella could not be everted and was slid off to the side of the knee. The menisci and cruciate ligaments were resected and the tibia was exposed. A instructor pilot hole was made into the tibia just in front of the lateral tibial spine based upon preoperative templating and an intramedullary alignment susie was inserted. The 0 degree cutting block was applied and aligned to the medial aspect the tibial tubercle and pinned into position. It was set to resect 8 mm off of the medial side which corresponded to about 4 mm lateral. This cut was made and the tibia was sized to a 3. Lateral osteophytes were removed and the lateral margin of the tibia was delineated and the soft tissues there released. I then went ahead and I drilled a instructor pilot hole into the distal femur. This was followed by insertion of the distal femoral cutting guide set for 12 mm thick cut 5 degree valgus based upon preop templating. The guide was pinned into place and this cut was made. The extension gap was slightly asymmetric 10. More loose medial and more tight lateral. The knee was neutrally aligned. Prior to making the tibial cut I use the extra medullary alignment susie to confirm alignment bisecting the ankle joint and intersecting the second ray and slope parallel to the tibia. Whitesides line and the transepicondylar axis were marked out. The distal femoral sizing guide was applied. It was sized to a 3. The external rotation drill holes were made which were a little bit more internally rotated than the epicondylar axis. I went ahead and inserted the block more along the line of the epicondylar axis and held in place with 2 pins. The collateral ligaments were protected and the anterior and posterior chamfer cuts were made. Osteophytes in the back of the knee particularly laterally were removed. The flexion gap was rectangular. It likewise was an asymmetric 10 slightly looser medially. I then went ahead and applied the box cutting guide lateralized it made the box cut and applied 3 femur. The tibia was exposed and the 3 tray was lateralized aligned with the tibial tubercle pinned into place and the drill and punch for the keel were utilized. I trialed with the 10 spacer which showed full extension. There was no laxity in full extension but she did have 1+ MCL laxity in mid position and trace laxity of the MCL at 90 degrees. I then went ahead and exposed the patella. I debrided the synovial tissue around the patella and carefully applied the patellar paddle. Patellar thickness was initially measured to be 21 mm. I selected a 35 mm oval dome patella. This is an 8.5 mm resection. I set the guide at 14. The cut was made and the residual patellar thickness was 13. The paddle was distal lysed and medialized and aligned with the trochlea. The locals were drilled and patellar tracking showed lateral displacement with flexion. The trial components removed from the knee. The canals were plugged and the Ortho joint mix was injected in the back of the knee. The soft tissues and bones were kept moist throughout the procedure with saline soaked sponges and pulsatile lavage. The bony surfaces were prepared with pulsatile lavage and drying. I then mixed 2 bags of Simplex P cement and then while in a doughy state cemented the femur tibia and patella in place and held extended until the cement hardened with a 10 mm spacer. Once the cemented hardened the tourniquet is let down after 99 minutes of inflation. The lateral geniculate was bleeding and I was able to isolate this and electrocauterize it. Hemostasis was otherwise achieved without much diffic ulty. TXA was given. The patella continued to track lateral and a lateral release was performed out to the subcutaneous tissue layer from the superior aspect of the patella down to the tibial plateau. The superior lateral geniculate vessels were identified and preserved. This corrected patellar tracking with no hands technique. I again trialed and use the 10 and 12.5 mm thick spacer. The 12.5 was readily excepted and eliminated laxity in 90 degrees flexion medially and reduced the medial laxity in mid flexion to trace. The back of the knee was inspected for cement and several large pieces were removed. There was no significant bleeding noted in the back of the knee. The back the knee was irrigated and the final final polyethylene spacer was inserted. Patellar thickness was 21 mm. Wellington assisted flexion with the extensor mechanism closed was 105 degrees. Irrigation performed. The extensor mechanism was closed above the equator the patella with interrupted #2 FiberWire. Below the equator with running and interrupted #1 Vicryl. The subcutaneous layer was closed in 2 layers of 0 Vicryl deep and superficial followed by 2-0 Vicryl and merary. Legs cleaned wet and dry sponges and a soft roll dressing was applied. ABDs were placed into the skin crease at her ankle to protect it from breakdown. Xeroform 4 x 4's ABD soft wrap and an Justo wrap with a knee immobilizer. Patient was then awakened from anesthesia without difficulty taken to the recovery room in stable condition. Resected bone and soft tissue was sent for specimen. Counts are correct blood loss is estimated to be 30 cc. At the conclusion the operation spoke patient's informed of my findings postop instructions were given. She will be able to weight-bear as tolerated. Lovenox for DVT prophylaxis. We will apply incisional wound VAC tomorrow. Rehab according to the total knee protocol. Components inserted with a J[employer]J PFC Sigma rotating platform knee size 3 left posterior stabilized femur and a size 3 mobile-bearing keeled tibial tray. A 35 mm 3 peg oval dome patella and a size 12.5 mm thick by size 3 mobile-bearing posterior stabilized polyethylene. I attest to the content of the Intraoperative Record and any orders documented therein. Any exceptions are noted below.
--- NOTE | 2021-12-29 14:33 | Operative Report ---
Post Operative Report Pre & Post Diagnosis Operation Date: 07/14/21 07:50 <No data on this case meets the specified criteria> Operation Date: 08/18/21 07:00 <No data on this case meets the specified criteria> Operation Date: 10/13/21 07:00 <No data on this case meets the specified criteria> Operation Date: 12/29/21 10:30 Pre-Op Diagnosis: Left Knee Degenerative Joint Disease Post-Op Diagnosis: Left Knee Degenerative Joint Disease I identified the patient and participated in the time-out.: Yes Procedure Operation Date: 07/14/21 07:50 <No data on this case meets the specified criteria> Operation Date: 08/18/21 07:00 <No data on this case meets the specified criteria> Operation Date: 10/13/21 07:00 <No data on this case meets the specified criteria> Operation Date: 12/29/21 10:30 Actual Procedures p Left Total Knee Arthroplasty(Left) - Bro Oliva MD Surgeon Winifred Oliva MD Cream Separator Operator GABRIELA Powell. Antonio Suraez fellow. Estimated Blood Loss 30 Findings Consistent with Post-Op Diagnosis Consistent with post op diagnosis. Specimens No specimens. Description of Procedure I participated in prepping dressing and assisted Dr. Oliva during the procedure. Please see Dr. Oliva note. I attest to the content of the Intraoperative Record and any orders documented therein. Any exceptions are noted below.
[2021-12-29] MEDS ORDERED: NALOXONE HCL 0.4 MG/1 ML VIAL/CARP IV PRN ×2 (14:42→15:51)
[2021-12-29] MEDS ORDERED: HYDROmorphone INJ 1 MG/ML SYRINGE IV PRN ×2 (14:42→15:51)
[2021-12-29] MEDS ORDERED: ONDANSETRON INJ 2 MG/ML 2 ML VIAL IV PRN ×2 (14:42→15:51)
[2021-12-29] MEDS ORDERED: FLUMAZENIL 0.1 MG/1 ML 10 ML VIAL IV PRN (14:42)
[2021-12-29] MEDS ORDERED: ATROPINE SULFATE 0.1 MG/ML 10ML SYR IV PRN (14:42)
[2021-12-29] MEDS ORDERED: ePHEDrine sulfate 50 MG/ML AMP IV PRN (14:42)
[2021-12-29] MEDS ORDERED: PROMETHAZINE HCL 12.5 MG in SODIUM CHLORIDE 0.9% 50 ML IV PRN (14:42)
[2021-12-29] MEDS: fentaNYL citrate 100 MCG/2 ML VIAL IV PRN ×3 (14:53→15:07)
--- NOTE | 2021-12-29 14:57 | XRay Report ---
XR knee LT 1 or 2V routine CLINICAL HISTORY: Postoperative evaluation. COMPARISON: Leg length study May 18, 2021. FINDINGS: Alignment of the total left knee arthroplasty is anatomic. There is no periprosthetic frac ture or unexpected radiopaque foreign body. There are skin merary. IMPRESSION: Expected findings following total left knee arthroplasty. ACT 112: Negative or not required by law. Electronically signed by: Delbert Schafer M.D. 12/29/2021 2:56 PM
--- NOTE | 2021-12-29 15:26 | Anesthesiology Progress Note ---
Date of Service December 29, 2021 Anesthesia Post Procedure Vital Signs Vital Signs: Temp Pulse Pulse Resp BP Pulse Ox 12/29/21 15:20 84 12 133/85 92 12/29/21 15:10 37.0 C 84 12 134/81 94 12/29/21 15:00 95 H 19 120/97 94 12/29/21 14:50 97 H 14 164/98 H 96 12/29/21 14:40 86 15 147/93 H 96 12/29/21 14:32 37.0 C 87 20 135/92 97 12/29/21 08:59 37 C 88 20 163/88 H 97 Pain Intensity Left Knee: Pain Intensity: 4 Lower Back: Pain Intensity: 4 Transfer of Care Handoff Completed per policy Notes Mental Status: alert / awake / arousable Patient Amnestic to Procedure: Yes Nausea / Vomiting: adequately controlled Pain: adequately controlled Airway Patency, RR, SpO2: stable & adequate BP & HR: stable & adequate Hydration State: stable & adequate Neuraxial Anesthesia: was administered and sensory block is resolving Anesthetic Complications: no major complications apparent
[2021-12-29] MEDS ORDERED: diphenhydrAMINE 50 MG/ML VIAL IV PRN (15:51)
[2021-12-29] MEDS ORDERED: CYCLOBENZAPRINE HCL 10 MG TAB PO PRN (15:51)
[2021-12-29] MEDS ORDERED: bisacodyL 10 MG SUPP PR PRN (15:51)
[2021-12-29] MEDS ORDERED: FUROSEMIDE 40 MG TAB PO PRN (15:51)
[2021-12-29] MEDS ORDERED: METOCLOPRAMIDE HCL INJ 5 MG/ML 2 ML VIAL IV PRN (15:51)
[2021-12-29] MEDS ORDERED: traMADol HCL 50 MG TABLET PO PRN (15:51)
[2021-12-29] MEDS ORDERED: HYOSCYAMINE SULFATE 0.125 MG TAB PO PRN (15:51)
[2021-12-29] MEDS ORDERED: ALBUTEROL HFA 8 GM INHALER INH PRN (15:51)
[2021-12-29] MEDS ORDERED: MAGNESIUM HYDROXIDE SUSP 30 ML UDC PO PRN (15:51)
[2021-12-29] MEDS ORDERED: HYDROmorphone INJ 0.5 MG/0.5 ML SYR IV PRN (15:51)
[2021-12-29] MEDS: CHECK CLONIDINE PATCH PLACEMENT SCH ×4 (15:58→23:04)
[2021-12-29] MEDS ORDERED: ALBUTEROL 0.083% NEBU SOLN 3 ML VIAL INH PRN (16:09)
[2021-12-29] MEDS: SODIUM CHLORIDE 0.9% 1000ML 1,000 ML IV SCH (16:40)
--- NOTE | 2021-12-29 17:22 | Orthopedic Progress Note ---
Date of Service December 29, 2021 Assessment & Plan (1) Status post total left knee replacement using cement: Plan: XR knee LT 1 or 2V routine CLINICAL HISTORY: Postoperative evaluation. COMPARISON: Leg length study May 18, 2021. FINDINGS: Alignment of the total left knee arthroplasty is anatomic. There is no periprosthetic fracture or unexpected radiopaque foreign body. There are skin merary. IMPRESSION: Expected findings following total left knee arthroplasty. Plan: She may be out of bed as tolerated with assistance, with walker and knee immobilizer on left leg when out of bed Ice to left knee as needed for pain/swelling. Start Lovenox tomorrow morning for DVT prophylaxis. Also doing SCD's and TEDS. Resumed regular home medications. PT/OT to start tomorrow. Pain well controlled - very little pain right now. Keep dressings on left leg at all times. Will discuss findings with Dr. Gonzalez and re-eval in the AM. Case management for disposition needs. Admission and Anticipated Discharge Date Admission Date: December 29, 2021 Subjective Patient comfortable, mildly nauseated and/or hungry. She denies numbness, tingling, chest pains or shortness of breath. She has been out of bed to the bedside commode. Please with how she is feeling right now. She would like to go home tomorrow. at bedside. Knee immobilizer in room. Physical Exam Musculoskeletal: dressings left leg intact. Full ROM of left ankle, strength 5/5. Distal sensation normal, dorsalis pedis pulse 1+. Results & Data ([facility]) Vital Signs (Past 12 Hours) Vital Signs Temp Pulse Pulse Resp BP Pulse Ox 12/29/21 15:20 84 12 133/85 92 12/29/21 15:10 37.0 C 84 12 134/81 94 12/29/21 15:00 95 H 19 120/97 94 12/29/21 14:50 97 H 14 164/98 H 96 12/29/21 14:40 36.5 C 90 16 119/81 97 12/29/21 14:32 37.0 C 87 20 135/92 97 12/29/21 14:10 78 16 119/77 96 12/29/21 08:59 37 C 88 20 163/88 H 97
[2021-12-29] MEDS: KETOROLAC 30 MG/ML VIAL IV SCH ×2 (17:50→21:25)
[2021-12-29] MEDS ORDERED: SENNA 8.6 MG TAB PO SCH (21:00)
[2021-12-29] MEDS ORDERED: TERAZOSIN HCL 1 MG CAP PO SCH (21:00)
[2021-12-29] MEDS ORDERED: CETIRIZINE HCL 10 MG TABLET PO SCH (21:00)
[2021-12-29] MEDS ORDERED: MONTELUKAST SODIUM 10 MG TABLET PO SCH (21:00)
[2021-12-29] MEDS: ceFAZolin 2000MG 2,000 MG/15 ML SYR IV SCH (21:18)
[2021-12-29] MEDS: acetaZOLAMIDE 250 MG TAB PO SCH (21:19)
[2021-12-29] MEDS: DOCUSATE SODIUM 100 MG CAP PO SCH (21:20)
[2021-12-30] MEDS: oxyCODONE HCL IR 5 MG TAB (IMMEDIATE RELEASE) PO PRN ×4 (00:37→15:57)
[2021-12-30] MEDS: SODIUM CHLORIDE 0.9% 1000ML 1,000 ML IV SCH (03:39)
[2021-12-30] MEDS: KETOROLAC 30 MG/ML VIAL IV SCH ×2 (04:10→11:25)
[2021-12-30] MEDS: ceFAZolin 2000MG 2,000 MG/15 ML SYR IV SCH (04:10)
[2021-12-30] MEDS ORDERED: LEVOTHYROXINE SODIUM 175 MCG TABLET PO SCH (06:30)
[2021-12-30 07:30] LABS: BUN Creatinine Ratio 26.8 (10-20); Calcium 8.3 mg/dl (8.5-10.1); Creatinine Clr Calc Pharmacy 85.1 ml/min; Est GFR (African American) 87.6 ml/min; Est GFR (Non-African American) 75.6 ml/min; Potassium 3.4 mmol/L (3.5-5.1)
[2021-12-30] MEDS ORDERED: dexAMETHasone 4 MG TAB PO SCH (08:00)
[2021-12-30] MEDS ORDERED: ENOXAPARIN INJ 30 MG/0.3 ML SYR SQ SCH (08:00)
[2021-12-30 08:32] LABS: Hematocrit (blood only) 34.2 % (37-47); Hemoglobin 11.1 g/dL (12.0-16.0); Mean Corpuscular Hemoglobin 31.1 pg (25-34); Mean Corpuscular Hgb Conc 32.5 g/dL (32-36); Mean Corpuscular Volume 95.8 fL (80-100); Mean Platelet Volume 10.2 fL (7.4-10.4); Platelet Count 199 K/uL (130-400); RDW Coefficient of Variation 13.7 % (11.5-14.5); Red Blood Count 3.57 M/uL (4.2-5.4); White Blood Count 13.38 K/uL (4.8-10.8)
[2021-12-30] MEDS: CHECK CLONIDINE PATCH PLACEMENT SCH (08:32)
[2021-12-30] MEDS: DOCUSATE SODIUM 100 MG CAP PO SCH (08:32)
[2021-12-30] MEDS: acetaZOLAMIDE 250 MG TAB PO SCH (08:34)
[2021-12-30] MEDS ORDERED: POTASSIUM CHLORIDE CRTAB 20 MEQ TABCR PO SCH (09:00)
[2021-12-30] MEDS ORDERED: CYANOCOBALAMIN (B-12) 500 MCG TABLET PO SCH (09:00)
[2021-12-30] MEDS ORDERED: FLUTICASONE/VILANTEROL 200/25MCG 14 PUFFS/INHALER INH SCH (09:00)
[2021-12-30] MEDS ORDERED: MULTIVITAMIN TAB PO SCH (09:00)
--- NOTE | 2021-12-30 12:46 | Orthopedic Progress Note ---
Date of Service December 30, 2021 Assessment & Plan (1) Status post total left knee replacement using cement: Plan: Postop day 1-status post left total knee arthroplasty with Dr. Oliva Physical therapy and Occupational Therapy started today. Regular diet as ordered. Home medications as ordered. Lovenox started this morning for DVT prophylaxis. This will continue for 2 to 4 weeks after surgery. She is comfortable giving this to her self at home. Knee Immobilizer when out of bed. She can discontinue this tomorrow. Discontinue her HARVEY stockings due to her leg size and the fact that they are uncomfortable. Continue SCDs for DVT prophylaxis as well as the Lovenox. Will attempt to get her outpatient SCDs for use at home. Tylenol and/or oxycodone as needed for pain control. We will discharge her home with oxycodone and tramadol prescriptions. Case management for disposition. She does have home health arranged as well as a walker for at home use. She is stable for discharge to her home today. Recommend follow-up as scheduled. We will follow-up with her in approximately a week for removal of her Prevena wound VAC. Discharge instructions were reviewed with the patient. All questions were answered. Findings discussed with Dr. Oliva. Admission and Anticipated Discharge Date Admission Date: December 29, 2021 Subjective Patient doing well today. She is resting comfortably in bed. She did have some pain which she took some pain medication for this morning after she got up from lying still all night. She states she did get up to use the restroom. She did well in physical therapy and Occupational Therapy. She is tolerating a regular diet. No more nausea. Physical Exam Musculoskeletal: Left knee incision clean, dry and intact. Dressings were removed and a Prevena wound VAC was applied. Trace joint effusion. Chronic leg edema present. Dorsalis pedis pulse 1+. Full range of motion and strength of her left ankle, and toes left foot. She is able to gently lift her leg about an inch off the bed independently. Able to gentle bend her left knee actively. Results & Data ([facility]) Vital Signs (Past 12 Hours) Vital Signs Temp Pulse Pulse Resp BP Pulse Ox 12/30/21 07:55 36.6 C 76 16 109/72 100 12/30/21 03:00 36.5 C 72 20 120/70 99 Laboratory Results 12/30/21 12/30/21 Range/Units 06:49 06:49 WBC 13.38 H (4.8-10.8) K/uL RBC 3.57 L (4.2-5.4) M/uL Hgb 11.1 L (12.0-16.0) g/dL Hct 34.2 L (37-47) % MCV 95.8 (80-100) fL MCH 31.1 (25-34) pg MCHC 32.5 (32-36) g/dL RDW Std Deviation 48.0 H (36.4-46.3) fL RDW Coeff of Rui 13.7 (11.5-14.5) % Plt Count 199 (130-400) K/uL MPV 10.2 (7.4-10.4) fL Sodium 140 (136-145) mmol/L Potassium 3.4 L (3.5-5.1) mmol/L Chloride 111 H (98-107) mmol/L Carbon Dioxide 22 (21-32) mmol/L Anion Gap 7 (3-11) BUN 22 (6-23) mg/dl Creatinine 0.82 (0.6-1.2) mg/dl Est Cr Clr Drug Dosing 85.1 ml/min Est GFR ( Amer) 87.6 ml/min Est GFR (Non-Af Amer) 75.6 ml/min BUN/Creatinine Ratio 26.8 H (10-20) Glucose 105 H (70-99(Fasting)) mg/dl Calcium 8.3 L (8.5-10.1) mg/dl
--- NOTE | 2021-12-31 15:40 | Discharge Summary ---
Date of Service December 31, 2021 Discharge Data Procedures Performed Operation Date: 07/14/21 07:50 <No data on this case meets the specified criteria> Operation Date: 08/18/21 07:00 <No data on this case meets the specified criteria> Operation Date: 10/13/21 07:00 <No data on this case meets the specified criteria> Operation Date: 12/29/21 10:30 Actual Procedures p Left Total Knee Arthroplasty(Left) - Bro Oliva MD Hospital Course (1) Status post total left knee replacement using cement: Patient was admitted to [facility] after undergoing an elective left total knee arthroplasty by Dr. Oliva on December 29, 2021. The surgery was performed with spinal anesthesia, IV sedation and peripheral nerve block. She tolerated her surgery well without any intraoperative complications. She was given 2 g of IV Ancef for surgical prophylaxis which was continued for 24 hours after surgery. Postoperative x-rays were performed in the recovery room and showed a stable prosthesis with no evidence of fractures. She was allowed out of bed, weight-bear as tolerated with the assistance of a walker and knee immobilizer. On postoperative day 1 her dressings were changed her incision was clean, dry and intact. A Prevena wound VAC was applied. HARVEY stockings were discontinued due to her leg and body habitus. She was unable to tolerate those. We did make arrangements for home plasma flow SCDs to be delivered to her home. She was seen and evaluated by physical therapy and Occupational Therapy. She did well out of bed. Her regular home medications were continued. Discharge instructions were reviewed. She was placed on SCDs, HARVEY stockings and Lovenox for DVT prophylaxis. Lovenox was started on postoperative day 0. Case management was involved for disposition needs. She will have home health nursing and physical therapy. She tolerated regular diet. She was given Tylenol, Toradol, tramadol, oxycodone and Dilaudid for pain. Her pain was well controlled on tramadol and oxycodone. She was deemed safe for discharge by PT and OT. She was discharged to her home in stable condition on December 30, 2021. She understands and agrees with the plan. She will follow-up as scheduled.
== END 2021-12-30 17:21 | disposition home health service (06) ==
LOC: 3E 08:34 → ASU 08:34

== ENCOUNTER 2022-01-18 12:57 | Inpatient (IN) ==
[2022-01-18] MEDS ORDERED: MAGNESIUM HYDROXIDE SUSP 30 ML UDC PO PRN (13:34)
[2022-01-18] MEDS ORDERED: ONDANSETRON INJ 2 MG/ML 2 ML VIAL IV PRN (13:34)
--- NOTE | 2022-01-18 16:24 | History & Physical Report ---
Date of Service January 18, 2022 Assessment & Plan (1) Delayed surgical wound healing: Plan: Patient is status post left total knee arthroplasty on December 29, 2021. The most distal aspect of her incision appears to have some wound dehiscence and delayed healing with active drainage. Surgical intervention was recommended. She is scheduled for an irrigation, debridement and revision of her left total knee incision on January 19, 2022. Risks and complications of the procedure were explained to the patient and include but are not limited to infection, pain, bleeding, scarring, nerve or blood vessel damage, wound problems, weakness, stiffness, incomplete relief of symptoms, tendon or ligament injury, need for further surgery, hardware failure, fracture, heart attack, stroke and . All questions were answered and informed consent was obtained by Dr. Oliva. She understands and agrees to proceed with surgery. She does not need any preoperative medical clearance. We will obtain a preoperative CBC, ESR and CRP. We will start IV Ancef 2 g every 8 hours. She will be given a regular diet and made n.p.o. after midnight. We will continue her aspirin 325 mg p.o. twice daily for DVT prophylaxis. She can also use her at home SCD compression devices. She may weight-bear as tolerated, range of motion as tolerated to her left knee with use of a walker. Postoperatively we may get PT and OT involved. She may require a 1 to 5-day admission. She will have a COVID test upon arrival at the hospital in preparation for her upcoming procedure. She understands and agrees with the plan. All questions were answered today. Admission and Anticipated Discharge Date Admission Date: January 18, 2022 History of Present Illness Chief Complaint: Status post left total knee arthroplasty, wound drainage Primary Care Provider: NO PCP Patient is a pleasant 66-year-old female who is status post a left total knee arthroplasty on December 29, [address] Oliva. She has been doing well from her total knee replacement. She does have chronic lymphedema in that left lower extremity. Immediately postoperatively she developed a lot of swelling in that leg. The distal aspect of her incision has been over the last week or so had some mild erythema and small amounts of serous drainage. She was here today for postoperative visit and merary were removed. It was noted that the very distal aspect of her incision continued to have some serous sanguinous drainage and some separation of the incision. Due to these findings surgical intervention was recommended for any irrigation, debridement and revision of her incision of her left knee wound. She is in agreement. We will direct admit her today for IV antibiotics. Wound culture was performed in the office today and currently results are pending. She has not had any fevers or chills although she did have some fevers in the evenings directly after her procedure. She has not had any increase in pain is actually improved the last week or so. She has been keeping a dressing on the wound at all times. She was treated with Prevena for about 7 days after surgery. She is on aspirin 325 mg twice daily for DVT prophylaxis as well as at home SCDs. She has been continuing to keep her leg elevated and an attempt to keep The swelling under control. 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 She is present today with her . She has been Taking tramadol for pain. And occasional oxycodone. She has been Having physical therapy and home with home health agency. Allergies Allergy/AdvReac Type Severity Reaction Status Date / Time levofloxacin Allergy Severe Anaphylaxis Verified 12/29/21 08:44 Home Medications Medication Instructions Recorded Confirmed Type cetirizine 10 mg tablet (Zyrtec) 10 mg PO HS 07/25/18 12/29/21 History cyanocobalamin (vitamin B-12) 1,000 mcg PO QAM 07/25/18 12/29/21 History 1,000 mcg tablet (Vitamin B-12) fluticasone 250 mcg-salmeterol 50 1 inh INHALATION BID 07/25/18 12/29/21 History mcg/dose blistr powdr for inhalation (Advair Diskus) furosemide 40 mg tablet 40 mg PO QPM PRN 07/25/18 12/29/21 History levothyroxine 175 mcg tablet 175 mcg PO QAM 07/25/18 12/29/21 History montelukast 10 mg tablet 10 mg PO PM 07/25/18 12/29/21 History terazosin 2 mg capsule 2 mg PO HS 07/25/18 12/29/21 History acetazolamide 250 mg tablet 250 mg PO BID 05/13/21 12/29/21 History albuterol sulfate 0.63 mg/3 mL 0.63 mg INHALATION Q4H PRN 05/13/21 12/29/21 History solution for nebulization albuterol sulfate 90 mcg/actuation 1 inh INHALATION QID PRN 05/13/21 12/29/21 History aerosol inhaler hyoscyamine sulfate 0.125 mg 0.125 mg PO BID PRN 05/13/21 12/29/21 History tablet (Levsin) potassium chloride 20 mEq 20 meq PO QAM 05/13/21 12/29/21 History tablet,extended release docusate sodium 100 mg capsule 100 mg PO BID #30 cap 12/30/21 Rx enoxaparin 30 mg/0.3 mL 30 mg SUBCUT Q12H 14 Days #8.4 ml 12/30/21 Rx subcutaneous syringe (Lovenox) oxycodone 5 mg tablet 5 - 10 mg PO Q4H PRN #20 tab 12/30/21 Rx tramadol 50 mg tablet 50 - 100 mg PO Q4H PRN #20 tab 12/30/21 Rx Past Med/Surg History Medical History Arthritis Asthma Stable, no inhaler use "for a while" GERD (gastroesophageal reflux disease) controlled Hx of deep venous thrombosis LLE (35+ years ago) Hx of pancreatitis 10 years ago Hyperlipidemia Hypertension Hypothyroidism Lumbar herniated disc Lymphedema Morbid obesity 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 SARS-CoV-2 positive Covid positive 11/01/21 (S) > asymptomatic (pt was being tested through work, [facility] report scanned into [employer]) Surgical History H/O oophorectomy History of ankle surgery Right Left ligament repair History of bowel resection r/t bowel obstruction History of cholecystectomy History of colonoscopy History of ERCP History of hysterectomy History of total knee replacement Right (2010- done under spinal anesthesia; [facility]) [place] teeth removed Family History Mother Family history of diabetes mellitus Family hx of colon cancer Brother Family history of diabetes mellitus Other No family history of adverse response to anesthesia Social History Smoking Status: Former smoker Second Hand Exposure: No; Hx Alcohol Use: Yes Hx Substance Use: No Preferred Language: Bahamian Communication Ability: Effective Acid Strength Inspector Required: No Beliefs That Will Affect Care: None Current Living Situation: Spouse Feels Safe at Home: Yes Assistive Devices: Cane and Walker Review of Systems Review of Systems: She denies any recent cough, cold, flulike symptoms. Her most recent hospitalization was December 29, 2021 after having a left total knee arthroplasty. She was discharged on December 30, 2021. She did develop some postoperative fevers acutely after her discharge home. This only happened in the evening. She was afebrile throughout the day. She has not had any COVID-19 symptoms. She did have COVID back in November. She denies any calf pain. She does have some left lower extremity edema Which is chronic but more pronounced after her left total knee arthroplasty. She has been using her at home SCDs. D enies any recent chest pain or shortness of breath. Denies abdominal pain, heartburn, indigestion, nausea, vomiting, diarrhea or constipation. Denies any urinary symptoms such as frequency or burning. She has had some drainage from the incision. Mild erythema with some improvement of the last few days. She has not been on any recent antibiotics. She does have history of having a previous DVT in her lower extremity and was placed on Lovenox for the first 2 weeks after surgery she is now currently on aspirin 325 mg p.o. twice daily. Physical Exam Constitutional: well developed, well nourished, + obese, cooperative, comfortable and + edematous (Left lower extremity); no acute distress ENMT: external ear and nose normal, oropharynx normal Neck: trachea midline, no thyromegaly Respiratory: normal respiratory effort, lungs clear to auscultation Cardiovascular: Rate/Rhythm: regular rate and regular rhythm Heart Sounds: normal S1 and normal S2 Extremities: normal capillary refill and + edema (Left lower extremity); no calf tenderness Chest (Breasts): Chest: normal inspection of chest Gastrointestinal (Abdomen): normal bowel sounds, soft, nontender, no hepatosplenomegaly Musculoskeletal: Tolerates gentle range of motion to about 90 degrees of flexion of her left knee. She is able to inability straight leg raise. Full ankle range of motion. Chronic distal edema of her left lower extremity. No calf tenderness with palpation. The knee is not erythematous or warm. Trace joint effusion. She is able to extend her knee on the exam table. At the most distal aspect of the incision the last inch and a half or so there is some mild but assistance of the wound edges with active serosanguineous drainage. There is no surrounding erythema. Minimal warmth the left knee. The rest of the incision is healed nicely and merary were removed and Steri-Strips were applied. Full range of motion of her left hip without discomfort. Results & Data Results & Data ([facility]) Vital Signs (Past 12 Hours) Temperature is 36.3 C Blood pressure 140/90 Respiratory rate 20 breaths/min Oxygenation on room air is 98% Pain score: 4/10 Laboratory Results Will order a CBC, ESR and CRP upon admission. Currently pending. Code Status & VTE Plan VTE Prophylaxis Plan VTE Prophylaxis will be ordered: Yes
[2022-01-18 16:32] LABS: Hematocrit (blood only) 33.4 % (37-47); Hemoglobin 10.1 g/dL (12.0-16.0); Mean Corpuscular Hemoglobin 30.3 pg (25-34); Mean Corpuscular Hgb Conc 30.2 g/dL (32-36); Mean Corpuscular Volume 100.3 fL (80-100); Mean Platelet Volume 9.6 fL (7.4-10.4); Platelet Count 318 K/uL (130-400); RDW Standard Deviation 54.8 fL (36.4-46.3); Red Blood Count 3.33 M/uL (4.2-5.4); White Blood Count 5.13 K/uL (4.8-10.8)
[2022-01-18] MEDS ORDERED: ALBUTEROL HFA 8 GM INHALER INH PRN (16:35)
[2022-01-18] MEDS ORDERED: FUROSEMIDE 40 MG TAB PO PRN (16:35)
[2022-01-18] MEDS ORDERED: HYOSCYAMINE SULFATE 0.125 MG TAB PO PRN (16:35)
[2022-01-18] MEDS ORDERED: ALBUTEROL 0.5% NEB SOLN 2.5 MG/0.5 ML VIAL INH PRN (16:35)
[2022-01-18] MEDS: ceFAZolin 2000MG 2,000 MG/15 ML SYR IV SCH ×2 (17:04→23:38)
[2022-01-18] MEDS: traMADol HCL 50 MG TABLET PO PRN (17:14)
[2022-01-18] MEDS: TERAZOSIN HCL 1 MG CAP PO SCH (20:26)
[2022-01-18] MEDS: MONTELUKAST SODIUM 10 MG TABLET PO SCH (20:26)
[2022-01-18] MEDS: DOCUSATE SODIUM 100 MG CAP PO SCH (20:26)
[2022-01-18] MEDS: CETIRIZINE HCL 10 MG TABLET PO SCH (20:26)
[2022-01-18] MEDS ORDERED: FLUTICASONE/SALMETEROL 250/50 (ADVAIR) 14 PUFF/1 INHALER INH SCH (21:00)
[2022-01-18] MEDS ORDERED: ASPIRIN/ALUM/MAGNES/CAL CARB 325 MG TAB PO SCH (21:00)
[2022-01-18] MEDS: acetaZOLAMIDE 250 MG TAB PO SCH (22:09)
[2022-01-18] MEDS: ASPIRIN 325 MG ECTAB PO SCH (22:09)
[2022-01-18] MEDS: oxyCODONE HCL IR 5 MG TAB (IMMEDIATE RELEASE) PO PRN (23:48)
[2022-01-19] MEDS: traMADol HCL 50 MG TABLET PO PRN (05:41)
[2022-01-19] MEDS: LEVOTHYROXINE SODIUM 175 MCG TABLET PO SCH (05:42)
[2022-01-19] MEDS: ASPIRIN 325 MG ECTAB PO SCH ×2 (08:17→20:32)
[2022-01-19] MEDS: CYANOCOBALAMIN (B-12) 500 MCG TABLET PO SCH (08:17)
[2022-01-19] MEDS: ceFAZolin 2000MG 2,000 MG/15 ML SYR IV SCH ×2 (08:17→16:24)
[2022-01-19] MEDS: acetaZOLAMIDE 250 MG TAB PO SCH ×2 (08:17→16:41)
[2022-01-19] MEDS: POTASSIUM CHLORIDE CRTAB 20 MEQ TABCR PO SCH (08:17)
[2022-01-19] MEDS: FLUTICASONE/VILANTEROL 200/25MCG 14 PUFFS/INHALER INH SCH (08:18)
[2022-01-19] MEDS: DOCUSATE SODIUM 100 MG CAP PO SCH ×3 (08:19→20:32)
[2022-01-19] MEDS: PANTOprazole 40 MG TAB PO SCH (08:21)
--- NOTE | 2022-01-19 09:38 | Orthopedic Progress Note ---
Date of Service January 19, 2022 Assessment & Plan (1) Delayed surgical wound healing: Plan: Patient is status post left total knee arthroplasty on December 29, 2021. The most distal aspect of her incision appears to have some wound dehiscence and delayed healing with active drainage. Surgical intervention was recommended. She is scheduled for an irrigation, debridement and revision of her left total knee incision on January 19, 2022. Risks and complications of the procedure were explained to the patient and include but are not limited to infection, pain, bleeding, scarring, nerve or blood vessel damage, wound problems, weakness, stiffness, incomplete relief of symptoms, tendon or ligament injury, need for further surgery, hardware failure, fracture, heart attack, stroke and . All questions were answered and informed consent was obtained by Dr. Oliva. She understands and agrees to proceed with surgery. She does not need any preoperative medical clearance. We will obtain a preoperative CBC, ESR and CRP. We will start IV Ancef 2 g every 8 hours. She will be given a regular diet and made n.p.o. after midnight. We will continue her aspirin 325 mg p.o. twice daily for DVT prophylaxis. She can also use her at home SCD compression devices. She may weight-bear as tolerated, range of motion as tolerated to her left knee with use of a walker. Postoperatively we may get PT and OT involved. She may require a 1 to 5-day admission. She will have a COVID test upon arrival at the hospital in preparation for her upcoming procedure. She understands and agrees with the plan. All questions were answered today. Admission and Anticipated Discharge Date Admission Date: January 18, 2022 Subjective This 66-year-old female is approximately 3 weeks status post left total knee arthroplasty. She states that after having her sutures removed the other day the distalmost aspect of the incision opened and began draining. She attributes this to her severe lymphedema that affects the left lower extremity. She was admitted and is scheduled to undergo irrigation and debridement with wound closure with Dr. Oliva. Currently she denies chest pain, shortness of breath, fever, chills, sweats, lethargy or numbness or tingling in her left lower extremity. She is able to ambulate from her bed to the bathroom using her walker without significant difficulty. Review of Systems Review of Systems: She denies any recent cough, cold, flulike symptoms. Her most recent hospitalization was December 29, 2021 after having a left total knee arthroplasty. She was discharged on December 30, 2021. She did develop some postoperative fevers acutely after her discharge home. This only happened in the evening. She was afebrile throughout the day. She has not had any COVID-19 symptoms. She did have COVID back in November. She denies any calf pain. She does have some left lower extremity edema Which is chronic but more pronounced after her left total knee arthroplasty. She has been using her at home SCDs. Denies any recent chest pain or shortness of breath. Denies abdominal pain, heartburn, indigestion, nausea, vomiting, diarrhea or constipation. Denies any urinary symptoms such as frequency or burning. She has had some drainage from the incision. Mild erythema with some improvement of the last few days. She has not been on any recent antibiotics. She does have history of having a previous DVT in her lower extremity and was placed on Lovenox for the first 2 weeks after surgery she is now currently on aspirin 325 mg p.o. twice daily. Physical Exam Physical Exam: Left knee: Dressing was kept in place. Is clean dry and intact. Steri-Strips are also in place. Patient is able to extend to 0 degrees and flex to 90 degrees sitting on edge of her bed. She is able to detect light sensation to touch over the pads of her digits. Her calf is soft but firm to touch. She has severe lymphedema affecting the left lower extremity with 2+ pitting. She is able to form a straight leg raise test and actively dorsi and plantarflex her foot. Results & Data ([facility]) Vital Signs (Past 12 Hours) Vital Signs Temp Pulse Resp BP Pulse Ox 01/19/22 07:46 36.7 C 78 16 131/78 97 01/19/22 00:25 36.9 C 81 17 136/78 98 Diagnostic Findings Laboratory Results WBC 5.13 K/uL (4.8-10.8) 01/18/22 15:37 RBC 3.33 M/uL (4.2-5.4) L 01/18/22 15:37 Hgb 10.1 g/dL (12.0-16.0) L 01/18/22 15:37 Hct 33.4 % (37-47) L 01/18/22 15:37 MCV 100.3 fL (80-100) H 01/18/22 15:37 MCH 30.3 pg (25-34) 01/18/22 15:37 MCHC 30.2 g/dL (32-36) L 01/18/22 15:37 RDW Std Deviation 54.8 fL (36.4-46.3) H 01/18/22 15:37 RDW Coeff of Rui 15.0 % (11.5-14.5) H 01/18/22 15:37 Plt Count 318 K/uL (130-400) 01/18/22 15:37 MPV 9.6 fL (7.4-10.4) 01/18/22 15:37 ESR 16 mm/hr (0-30) 01/18/22 15:37 C-Reactive Protein 0.73 mg/dl (0-0.5) H 01/18/22 15:37 SARS-CoV-2, RNA, NAAT NEGATIVE (NEGATIVE) 01/18/22 Unknown
[2022-01-19] MEDS ORDERED: ePHEDrine sulfate 50 MG/ML SYR ONE (13:21)
[2022-01-19] MEDS ORDERED: PROPOFOL IV EMULSION 10 MG/ML 20 ML VIAL IV ONE (13:21)
[2022-01-19] MEDS ORDERED: LIDOCAINE 2% 2 ML VIAL/AMP(20MG/ML) INFIL ONE (13:21)
[2022-01-19] MEDS ORDERED: PHENYLEPHRINE 100MCG/ML 5ML SYR ONE (13:21)
[2022-01-19] MEDS ORDERED: MIDAZOLAM HCL 1 MG/ML 2ML VIAL ONE (13:21)
[2022-01-19] MEDS ORDERED: fentaNYL citrate 100 MCG/2 ML VIAL ONE ×2 (13:21→14:12)
--- NOTE | 2022-01-19 13:27 | History & Physical Bridge Note ---
Date of Service January 19, 2022 History & Physical Bridge Note I have examined the patient, reviewed the History & Physical and in the interval since the performance of the History & Physical I have noted the following changes of clinical significance: no changes noted
--- NOTE | 2022-01-19 13:33 | Anesthesiology Consultation ---
Date of Service January 19, 2022 Assessment & Plan Chart Review Chart Review: Acceptable Risk for Surgery and Patient NOT seen in Pre Admission Testing Consults Requested none ASA ASA3 Proposed Anesthesia Anesthesia Type: General Risk / Benefits Reviewed With: PT / POA / Parent / Guardian, Accepts Plan and Informed Consent Obtained Additional Comments: covid test neg. History Surgery Operation Date: 01/19/22 13:00 Proposed Procedures p Incision and Drainage Left Total Knee Wound - Bro Oliva MD Height/Weight Height: 5 ft 5 in Weight: 115.666 kg Allergies Allergy/AdvReac Type Severity Reaction Status Date / Time levofloxacin Allergy Severe Anaphylaxis Verified 12/29/21 08:44 Medications Home Medications Medication Instructions Recorded Confirmed Last Taken cetirizine 10 mg tablet (Zyrtec) 10 mg PO HS 07/25/18 12/29/21 12/28/21 21:00 cyanocobalamin (vitamin B-12) 1,000 mcg PO QAM 07/25/18 12/29/21 12/28/21 08:00 1,000 mcg tablet (Vitamin B-12) fluticasone 250 mcg-salmeterol 50 1 inh INHALATION BID 07/25/18 12/29/21 12/29/21 07:00 mcg/dose blistr powdr for inhalation (Advair Diskus) furosemide 40 mg tablet 40 mg PO QPM PRN 07/25/18 12/29/21 12/28/21 08:00 levothyroxine 175 mcg tablet 175 mcg PO QAM 07/25/18 12/29/21 12/29/21 07:00 montelukast 10 mg tablet 10 mg PO PM 07/25/18 12/29/21 12/28/21 21:00 terazosin 2 mg capsule 2 mg PO HS 07/25/18 12/29/21 12/28/21 21:00 acetazolamide 250 mg tablet 250 mg PO BID 05/13/21 12/29/21 12/28/21 21:00 albuterol sulfate 0.63 mg/3 mL 0.63 mg INHALATION Q4H PRN 05/13/21 12/29/21 Unknown solution for nebulization albuterol sulfate 90 mcg/actuation 1 inh INHALATION QID PRN 05/13/21 12/29/21 Unknown aerosol inhaler hyoscyamine sulfate 0.125 mg 0.125 mg PO BID PRN 05/13/21 12/29/21 Unknown tablet (Levsin) potassium chloride 20 mEq 20 meq PO QAM 05/13/21 12/29/21 12/28/21 07:00 tablet,extended release docusate sodium 100 mg capsule 100 mg PO BID #30 cap 12/30/21 Unknown enoxaparin 30 mg/0.3 mL 30 mg SUBCUT Q12H 14 Days #8.4 ml 12/30/21 Unknown subcutaneous syringe (Lovenox) oxycodone 5 mg tablet 5 - 10 mg PO Q4H PRN #20 tab 12/30/21 Unknown tramadol 50 mg tablet 50 - 100 mg PO Q4H PRN #20 tab 12/30/21 Unknown Active Medications Generic Name Dose Route Start Last Admin Trade Name Freq PRN Reason Stop Dose Admin Acetazolamide 250 mg 01/18/22 22:00 01/19/22 08:17 Acetazolamide 250 Mg Tab PO 02/17/22 21:59 250 mg [id number] LEAH Administration Aspirin 325 mg 01/18/22 21:45 01/19/22 08:17 Aspirin 325 Mg Ectab PO 02/17/22 21:44 325 mg BID LEAH Administration Cetirizine HCl 10 mg 01/18/22 21:00 01/18/22 20:26 Cetirizine Hcl 10 Mg Tablet PO 02/17/22 20:59 10 mg HS LEAH Administration Cyanocobalamin 1,000 mcg 01/19/22 09:00 01/19/22 08:17 Cyanocobalamin (B-12) 500 Mcg Tablet PO 02/18/22 08:59 1,000 mcg QAM LEAH Administration Docusate Sodium 100 mg 01/18/22 21:00 01/19/22 08:19 Docusate Sodium 100 Mg Cap PO 02/17/22 20:59 Not Given BID LEAH Fluticasone/Vilanterol 1 puffs 01/19/22 09:00 01/19/22 08:18 Fluticasone/Vilanterol 200/25mcg 14 Puffs/Inhaler INH 02/18/22 08:59 1 puffs DAILY LEAH Administration Cefazolin Sodium 2,000 mg in 15 mls @ 3.75 mls/min 01/18/22 16:00 01/19/22 08:17 Ancef 2000mg IV 01/25/22 15:59 3.75 mls/min Q8H LEAH Administration Protocol Levothyroxine Sodium 175 mcg 01/19/22 06:30 01/19/22 05:42 Levothyroxine Sodium 175 Mcg Tablet PO 02/18/22 06:29 175 mcg DAILYBB LEAH Administration Montelukast Sodium 10 mg 01/18/22 21:00 01/18/22 20:26 Montelukast Sodium 10 Mg Tablet PO 02/17/22 20:59 10 mg PM LEAH Administration Oxycodone HCl 5 - 10 mg 01/18/22 16:37 01/18/22 23:48 Oxycodone Hcl Ir 5 Mg Tab (Immediate Release) PO 02/01/22 16:36 10 mg Q6H PRN Administration Pain Pantoprazole Sodium 40 mg 01/19/22 09:00 01/19/22 08:21 Pantoprazole 40 Mg Tab PO 01/23/22 08:59 Not Given QAM LEAH Potassium Chloride 20 meq 01/19/22 09:00 01/19/22 08:17 Potassium Chloride Crtab 20 Meq Tabcr PO 02/18/22 08:59 20 meq QAM LEAH Administration Terazosin HCl 2 mg 01/18/22 21:00 01/18/22 20:26 Terazosin Hcl 1 Mg Cap PO 02/17/22 20:59 2 mg HS LEAH Administration Tramadol HCl 50 - 100 mg 01/18/22 16:37 01/19/22 05:41 Tramadol Hcl 50 Mg Tablet PO 02/17/22 16:36 100 mg Q6H PRN Administration Pain NPO Date Last Intake of Fluids: 01/18/22 Time Last Intake of Fluids: 21:00 Date Last Intake of Solids: 01/18/22 Time Last Intake of Solids: 20:00 Past Medical History Medical History Arthritis Asthma Stable, no inhaler use "for a while" GERD (gastroesophageal reflux disease) controlled Hx of deep venous thrombosis LLE (35+ years ago) Hx of pancreatitis 10 years ago Hyperlipidemia Hypertension Hypothyroidism Lumbar herniated disc Lymphedema Morbid obesity 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 SARS-CoV-2 positive Covid positive 11/01/21 ([facility]) > asymptomatic (pt was being tested through work, [facility] report scanned into [employer]) Exercise / Class Metabolic Activity III < 4 Walking/Shop/Light housework Past Family History Family History Mother Family history of diabetes mellitus Family hx of colon cancer Brother Family history of diabetes mellitus Other No family history of adverse response to anesthesia Past Surgical History Surgical History H/O oophorectomy History of ankle surgery Right Left ligament repair History of bowel resection r/t bowel obstruction History of cholecystectomy History of colonoscopy History of ERCP History of hysterectomy History of total knee replacement Right (2010- done under spinal anesthesia; [facility]) [place] teeth removed Past Anesthesia History No Hx of Anesthesia Complications and No Family Hx of Anesthesia Complications History of PONV No Hx of PONV and No Hx of Motion Sickness Social History Smoking Status: Former smoker tobacco type: cigarettes Do You Dip or Chew Tobacco: No Hx Alcohol Use: Yes alcohol intake frequency: holidays/special occasions only Hx Substance Use: No substance use type: does not use Physical Exam Vital Signs Last Vital Signs Temp 37 C 01/19/22 12:08 Pulse 82 01/19/22 12:08 Resp 20 01/19/22 12:08 BP 150/91 H 01/19/22 12:08 Pulse Ox 98 01/19/22 12:08 Constitutional + morbidly obese ENMT Mouth: no dentition abnormality Thyromental Distance: < 3.5 Finger Breadths Mallampati Class: II Neck normal visual inspection and trachea midline; neck extension not limited Respiratory normal respiratory effort Auscultation: lungs clear to auscultation bilaterally Cardiovascular Rate/Rhythm: regular rate and regular rhythm Heart Sounds: no murmur Vessels: no carotid bruit Musculoskeletal Spine: normal cervical ROM Extremities: + extremities abnormal to inspection Neurologic moves all extremities Motor/Sensory: no sensory deficit Psychiatric Orientation: alert and oriented x 3 Testing Laboratory Results 01/18/22 15:37
[2022-01-19] MEDS ORDERED: LABETALOL HCL IV 5 MG/ML 20ML IV PRN (13:34)
[2022-01-19] MEDS ORDERED: ePHEDrine sulfate 50 MG/ML AMP IV PRN (13:34)
[2022-01-19] MEDS ORDERED: FLUMAZENIL 0.1 MG/1 ML 10 ML VIAL IV PRN (13:34)
[2022-01-19] MEDS ORDERED: ONDANSETRON INJ 2 MG/ML 2 ML VIAL IV PRN (13:34)
[2022-01-19] MEDS ORDERED: fentaNYL citrate 100 MCG/2 ML VIAL IV PRN (13:34)
[2022-01-19] MEDS ORDERED: NALOXONE HCL 0.4 MG/1 ML VIAL/CARP IV PRN (13:34)
[2022-01-19] MEDS ORDERED: ATROPINE SULFATE 0.1 MG/ML 10ML SYR IV PRN (13:34)
[2022-01-19] MEDS ORDERED: PROMETHAZINE HCL 12.5 MG in SODIUM CHLORIDE 0.9% 50 ML IV PRN (13:34)
[2022-01-19] MEDS ORDERED: ceFAZolin 330 MG/ML 1 GM VIAL ONE (14:06)
[2022-01-19] MEDS ORDERED: ONDANSETRON INJ 2 MG/ML 2 ML VIAL ONE (14:07)
[2022-01-19] MEDS ORDERED: ceFAZolin 2000MG 2,000 MG/15 ML SYR IV ONE (14:44)
[2022-01-19] MEDS ORDERED: KETOROLAC 30 MG/ML VIAL ONE (15:11)
--- NOTE | 2022-01-19 15:24 | Operative Report ---
Post Operative Report Pre & Post Diagnosis Operation Date: 01/19/22 13:00 Pre-Op Diagnosis: Delayed surgical wound healing of left total knee arthroplasty Post-Op Diagnosis: Delayed surgical wound healing of left total knee arthroplasty I identified the patient and participated in the time-out.: Yes Procedure Operation Date: 01/19/22 13:00 Actual Procedures p Incision and Drainage Left Total Knee Wound(Left) - Bro Oliva MD Surgeon Martín Oliva MD Shake Cutter Mindy Suarez Md, Kourtney OCHOA Estimated Blood Loss 3 Findings Consistent with Post-Op Diagnosis Consistent with post op diagnosis. Specimens No specimens. Description of Procedure I participated in prepping dressing and assisted Dr. Oliva during the procedure. Please see Dr. Oliva note. I attest to the content of the Intraoperative Record and any orders documented therein. Any exceptions are noted below.
[2022-01-19] MEDS ORDERED: HYDROmorphone INJ 0.5 MG/0.5 ML SYR ONE (15:27)
[2022-01-19] MEDS ORDERED: HYDROmorphone INJ 0.5 MG/0.5 ML SYR IV PRN (15:27)
--- NOTE | 2022-01-19 15:28 | Operative Report ---
Post Operative Report Pre & Post Diagnosis Operation Date: 01/19/22 13:00 Pre-Op Diagnosis: Delayed surgical wound healing of left total knee arthroplasty Post-Op Diagnosis: Delayed surgical wound healing of left total knee arthroplasty I identified the patient and participated in the time-out.: Yes Procedure Operation Date: 01/19/22 13:00 Actual Procedures p Incision and Drainage and revision of left Total Knee Wound(Left) - Bro Oliva MD Surgeon Bro Oliva MD Cat Swamper Rob Suarez fellow. Kimberly Quinones physicians assistant teacher primary. Estimated Blood Loss 3 Findings Consistent with Post-Op Diagnosis Specimens Culture x1 Drains None Anesthesia Type General Complications none Disposition Accompanied Patient To Recovery: No Disposition: Recovery Room Indications Angela is 3 weeks status post left total knee arthroplasty. She has done very well. Unfortunately she has had persistent drainage from the lower 2 to 3 cm of her wound with some impaired wound healing. Initially I thought it was from adipose tissue edema and Lovenox. She did a good job of elevating the leg and we held the Lovenox for a week. When merary were taken out at 3 weeks it was noted that the skin edges may have been slightly mismatched. Given the status of the wound I elected to recommend admission culture antibiotics and wound revision. She agreed to proceed. No fevers. Gram stain in the office negative. White count normal ESR normal sed rate approximately 0.7. When examined in the office she had excellent pain-free range of motion and she does not have any significant detectable knee effusion or redness. Description of Procedure Informed consent obtained. Patient identified. She identified the operative site as the left knee. I marked with my initials. A preoperative surgical timeout was performed. A preop dose of IV antibiotics was given. She was taken to the operating room positioned supine on the operating table with a tourniquet on the left thigh. A bump was placed under the left hip. The leg was prescribed with Betadine and then prepped with Betadine paint in the usual sterile fashion. DVT prophylaxis was not necessary during surgery. Postoperatively will be done with her mechanical SCD devices aspirin and early mobility. The leg was exsanguinated with gravity and the tourniquet inflated to 300 mmHg. The tourniquet was let down at the conclusion of the operation. The wound was packed and pressure was held for several minutes. There was no significant bleeding. The examination demonstrated that the lower 2 to 3 cm of the incision were slightly curved and in addition to that the wound edges were not healed together. There were some spaces of 1/2 cm or so in between where there was incomplete healing. Above that the entire wound was completely healed and unremarkable. There was a large adipose layer on the leg. There was no erythema. There was some scant serosanguineous drainage. No purulence was noted. I spread the wound apart over its lower 2 to 3 cm from the very distal portion proximally. I then opened the healed incision for 1 cm proximally. The deeper tissues were partially healed superficially and partially opened. There was some unhealthy appearing free-floating fat fragments which were likely somewhat necrotic. These were debrided with a rongeur. I then debrided the margins of the wound down to the depth of the wound which was about 3 to 4 cm. Any of the protruding fat along the wall of the wound was debrided. Any granulation tissue was debrided. Any encountered superficial or deep sutures were removed. No purulence was noted. A deep wound culture was obtained. Irrigation was performed with 3 L of sterile saline. This appeared to be localized distally but nothing probed more proximally either superficial or deep. Meticulous hemostasis with pressure. 2 large retention sutures were applied using near far far near sutures with 0 nylon. The deeper portion was placed as deep as possible in the superficial portion about half the depth. I then closed the skin edges with five 3-0 nylon horizontal mattress stitches resulting in good eversion and approximation of the skin. There was adequate opportunity for any wound drainage to occur. Xeroform was applied along with a dressing 4 x 4's ABD and tape. The leg was cleaned of Betadine and Steri-Strips were applied to the remainder of the upper incision. She was awakened from anesthesia without difficulty and taken to the recovery room in stable condition. There were no complications. The specimen was as mentioned above counts were correct blood loss is estimated to be 3 to 5 cc. At the conclusion of the operation I spoke to patient's informed him of my findings. Postop instructions were given. The plan is admitted to the hospital placed on intravenous antibiotics monitor the wound do PT and OT. We will do mechanical devices aspirin and early mobility for DVT prophylaxis given the concern for Lovenox to cause wound drainage. She will be placed on postop IV antibiotics. I did not think a wound VAC was necessary. The wound is closed in a tension- free fashion. The wound was clean. I did not think that stimulant beads were needed and I wanted to avoid a drain if possible. I attest to the content of the Intraoperative Record and any orders documented therein. Any exceptions are noted below.
[2022-01-19] MEDS ORDERED: HYDROmorphone INJ 1 MG/ML SYRINGE ONE (15:39)
--- NOTE | 2022-01-19 16:05 | Anesthesiology Progress Note ---
Date of Service January 19, 2022 Anesthesia Post Procedure Vital Signs Vital Signs: Temp Pulse Pulse Resp BP Pulse Ox 01/19/22 15:50 78 16 134/83 92 01/19/22 15:40 77 14 121/75 99 01/19/22 15:30 80 13 124/92 100 01/19/22 15:22 97.9 F 87 14 134/95 100 01/19/22 12:08 98.6 F 82 20 150/91 H 98 01/19/22 07:46 98.1 F 78 16 131/78 97 01/19/22 00:25 98.4 F 81 17 136/78 98 01/18/22 20:26 83 142/84 H Pain Intensity Left Knee: Pain Intensity: 4 Transfer of Care Handoff Completed per policy Notes Mental Status: alert / awake / arousable and participated in evaluation Patient Amnestic to Procedure: Yes Nausea / Vomiting: adequately controlled Pain: adequately controlled Airway Patency, RR, SpO2: stable & adequate BP & HR: stable & adequate Hydration State: stable & adequate Anesthetic Complications: no major complications apparent and Pt Satisfied with anesthetic care
[2022-01-19] MEDS: TERAZOSIN HCL 1 MG CAP PO SCH (20:33)
[2022-01-19] MEDS: CETIRIZINE HCL 10 MG TABLET PO SCH (20:33)
[2022-01-19] MEDS: MONTELUKAST SODIUM 10 MG TABLET PO SCH (20:33)
[2022-01-20] MEDS: oxyCODONE HCL IR 5 MG TAB (IMMEDIATE RELEASE) PO PRN ×4 (00:03→23:45)
[2022-01-20] MEDS: ceFAZolin 2000MG 2,000 MG/15 ML SYR IV SCH ×4 (00:03→23:37)
[2022-01-20] MEDS: LEVOTHYROXINE SODIUM 175 MCG TABLET PO SCH (05:39)
[2022-01-20] MEDS: DOCUSATE SODIUM 100 MG CAP PO SCH ×4 (07:56→20:28)
[2022-01-20] MEDS: CYANOCOBALAMIN (B-12) 500 MCG TABLET PO SCH (07:57)
[2022-01-20] MEDS: POTASSIUM CHLORIDE CRTAB 20 MEQ TABCR PO SCH (07:57)
[2022-01-20] MEDS: PANTOprazole 40 MG TAB PO SCH (07:57)
[2022-01-20] MEDS: acetaZOLAMIDE 250 MG TAB PO SCH ×2 (07:57→15:59)
[2022-01-20] MEDS: ASPIRIN 325 MG ECTAB PO SCH ×2 (07:57→20:27)
[2022-01-20] MEDS: FLUTICASONE/VILANTEROL 200/25MCG 14 PUFFS/INHALER INH SCH (07:58)
--- NOTE | 2022-01-20 09:48 | Progress Notes ---
DATE OF SERVICE: 01/20/2022 Angela is resting comfortably in bed. No issues are reported. She is afebrile. Her vital signs are s table. There are no new labs today. She has intact distal neurovascular function. Capillary refill less than 2 seconds. Swelling remain s minimal to limited. The dressing is left intact. Her leg is elevated. She has 5/5 motor function . Culture from the office, which was a superficial wound culture, has grown out methicillin-sensitive s taph. A deeper operative culture is pending from surgery yesterday. I discussed with her the surgic al findings and the plan. She is independent with OT. She will [facility]. She is up every hour or so ambulating to the bathroom. She will be doing ankle pumps and we will have her mechanical devices for DVT prophylaxis along with aspirin. I do not want to put her on Cou madin or something like Xarelto given there is a possible need for further surgical intervention and it could take a couple days to turn these off. Concern regarding Lovenox for the wound drainage that she had. Therefore, we are going to stick with mobility, aspirin and mechanical devices, which is d iscussed with her. At this time, we will continue intravenous Ancef pending further culture results. I do not think merna t there is evidence of infection; however, I think that there has been some colonization of the open portion of the wound. We will change her dressing tomorrow. I am anticipating a perhaps 48-72 hour course of postoperative IV antibiotics. Possibly discharge home on orals or possibly insert a midlin e and do some IV antibiotics for a couple weeks. I think an infectious disease consultation is not n ecessary at this time. Job ID: [id number]
[2022-01-20] MEDS: MONTELUKAST SODIUM 10 MG TABLET PO SCH (20:27)
[2022-01-20] MEDS: CETIRIZINE HCL 10 MG TABLET PO SCH (20:27)
[2022-01-20] MEDS: TERAZOSIN HCL 1 MG CAP PO SCH (20:28)
[2022-01-21] MEDS: LEVOTHYROXINE SODIUM 175 MCG TABLET PO SCH (04:56)
[2022-01-21] MEDS: ASPIRIN 325 MG ECTAB PO SCH ×2 (09:02→20:29)
[2022-01-21] MEDS: acetaZOLAMIDE 250 MG TAB PO SCH ×2 (09:02→16:03)
[2022-01-21] MEDS: ceFAZolin 2000MG 2,000 MG/15 ML SYR IV SCH ×2 (09:02→16:04)
[2022-01-21] MEDS: POTASSIUM CHLORIDE CRTAB 20 MEQ TABCR PO SCH (09:02)
[2022-01-21] MEDS: CYANOCOBALAMIN (B-12) 500 MCG TABLET PO SCH (09:02)
[2022-01-21] MEDS: DOCUSATE SODIUM 100 MG CAP PO SCH ×3 (09:02→20:29)
[2022-01-21] MEDS: PANTOprazole 40 MG TAB PO SCH (09:02)
[2022-01-21] MEDS: FLUTICASONE/VILANTEROL 200/25MCG 14 PUFFS/INHALER INH SCH (09:02)
[2022-01-21] MEDS: traMADol HCL 50 MG TABLET PO PRN (16:03)
--- NOTE | 2022-01-21 16:29 | Progress Notes ---
DATE OF SERVICE: 01/21/2022 No issues reported. Resting comfortably in bed. Had physical therapy. She has been up and about fr equently and has been using her SCDs. She is afebrile. Her vital signs are stable. Her intraoperat hany cultures, no growth to date. The incision is inspected. Dressing changed. There is no erythema and no drainage. The dressing is dry. The wound margins are well approximated. A new dressing is applied. Plan moving forward is to continue IV antibiotics until tomorrow. Reassess and consider for discharg e home on oral antibiotics. May consider, if things look well, restarting her Lovenox. Job ID: [id number]
[2022-01-21] MEDS: TERAZOSIN HCL 1 MG CAP PO SCH (20:28)
[2022-01-21] MEDS: CETIRIZINE HCL 10 MG TABLET PO SCH (20:29)
[2022-01-21] MEDS: MONTELUKAST SODIUM 10 MG TABLET PO SCH (20:29)
[2022-01-21] MEDS: oxyCODONE HCL IR 5 MG TAB (IMMEDIATE RELEASE) PO PRN (23:01)
[2022-01-22] MEDS: ceFAZolin 2000MG 2,000 MG/15 ML SYR IV SCH ×2 (00:07→08:19)
[2022-01-22] MEDS: LEVOTHYROXINE SODIUM 175 MCG TABLET PO SCH (05:45)
[2022-01-22] MEDS: traMADol HCL 50 MG TABLET PO PRN (08:19)
[2022-01-22] MEDS: ASPIRIN 325 MG ECTAB PO SCH (08:19)
[2022-01-22] MEDS: FLUTICASONE/VILANTEROL 200/25MCG 14 PUFFS/INHALER INH SCH (08:19)
[2022-01-22] MEDS: acetaZOLAMIDE 250 MG TAB PO SCH (08:19)
[2022-01-22] MEDS: CYANOCOBALAMIN (B-12) 500 MCG TABLET PO SCH (08:19)
[2022-01-22] MEDS: POTASSIUM CHLORIDE CRTAB 20 MEQ TABCR PO SCH (08:19)
[2022-01-22] MEDS: DOCUSATE SODIUM 100 MG CAP PO SCH (08:20)
[2022-01-22] MEDS: PANTOprazole 40 MG TAB PO SCH (08:20)
--- NOTE | 2022-01-22 14:05 | Discharge Summary ---
Date of Service January 22, 2022 Admission HPI Per Admitting Provider Patient is a pleasant 66-year-old female who is status post a left total knee arthroplasty on December 29, [address] Oliva. She has been doing well from her total knee replacement. She does have chronic lymphedema in that left lower extremity. Immediately postoperatively she developed a lot of swelling in that leg. The distal aspect of her incision has been over the last week or so had some mild erythema and small amounts of serous drainage. She was here today for postoperative visit and merary were removed. It was noted that the very distal aspect of her incision continued to have some serous sanguinous drainage and some separation of the incision. Due to these findings surgical intervention was recommended for any irrigation, debridement and revision of her incision of her left knee wound. She is in agreement. We will direct admit her today for IV antibiotics. Wound culture was performed in the office today and currently results are pending. She has not had any fevers or chills although she did have some fevers in the evenings directly after her procedure. She has not had any increase in pain is actually improved the last week or so. She has been keeping a dressing on the wound at all times. She was treated with Prevena for about 7 days after surgery. She is on aspirin 325 mg twice daily for DVT prophylaxis as well as at home SCDs. She has been continuing to keep her leg elevated and an attempt to keep The swelling under control. 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 She is present today with her . She has been Taking tramadol for pain. And occasional oxycodone. She has been Having physical therapy and home with home health agency. Discharge Data Procedures Performed Operation Date: 01/19/22 13:00 Actual Procedures p Incision and Drainage Left Total Knee Wound(Left) - Bro Oliva MD Hospital Course (1) Delayed surgical wound healing: Patient is status post a left total knee arthroplasty on December 29, 2021. She has been followed in the office as an outpatient for her left total knee. She has been having some increased drainage at the distal aspect of the incision. She was seen in our office on January. She continues have drainage of the distal aspect of incision. She was direct admitted for IV antibiotics. She was also placed on the operating room schedule for an incision and drainage, irrigation debridement of her left total knee incision with Dr. Oliva. Surgery was performed on January 19, 2022. Surgery was performed with general anesthesia. She tolerated the procedure well without any intraoperative complications. She was placed on IV Ancef which was discontinued on January 22, 2022. Preoperative cultures grew out staph TIFFANY and intraoperative cultures continue to be no growth to date. She was allowed out of bed, weight-bear as tolerated left lower extremity. She is to walker to assist with ambulation. Oxycodone Tylenol and tramadol was continued for postoperative pain management. Physical therapy and Occupational Therapy consults were placed. She brought her home SCDs that she could use while in the hospital. She was placed on aspirin 325 mg p.o. twice daily for DVT prophylaxis. Her regular home medications were continued. She was placed on a regular diet. Postoperative labs were stable. On postoperative day 3, her dressings were changed and her incision was clean, dry and intact with retained sutures. There is no active drainage, minimal erythema, nontender to palpation. With negative cultures and improve symptoms it was determined that she could proceed to be discharged to home. She was discharged on January 22, 2022 in stable condition. Her IV antibiotics were discontinued and she was placed on oral Keflex for at home for 7 days after Discharge. Discharge instructions were reviewed. She was discharged in stable condition. All questions were answered. Follow-up next week as scheduled.
--- NOTE | 2022-01-22 14:09 | Progress Notes ---
DATE OF SERVICE: 01/22/2022 Angela is resting comfortably in bed. She has not had PT yet. Her blood pressures have been a little bit high and she will monitor this at home, and if it continues to be elevated, she will contact her primary care physician. She is afebrile. Her cultures no growth to date x3 days. That is her opera tive culture. She is able do a straight leg raise with a 10 degree lag and she can flex her knee, I would say about 80 degrees. There is no effusion or erythema. She has a drop of drainage on the le ssing, nothing of any significance. There is no fluctuance or erythema. No tenderness and the wound looks like it is healing well. New dressing applied. She will be discharged home today on Keflex 500 q.i.d. x7 days. She has a followup arranged with Shonna hernandez next week. We will have her get PT today and then she will resume outpatient PT on Tuesday. Darrin palomo will hold Lovenox for DVT prophylaxis for now. She will use aspirin 325 mg p.o. b.i.d., frequent a mbulation and her SCDs. Continue elevation. Job ID: [id number]
== END 2022-01-22 15:41 | disposition home or self-care (01) | DRG 920 ==
LOC: 3E 15:10
DX: E03.9 Hypothyroidism, unspecified; Z20.822 Contact with and (suspected) exposure to COVID-19; Z86.718 Personal history of other venous thrombosis and embolism; Z86.16 Personal history of COVID-19; T81.31XA Disruption of external operation (surgical) wound, not elsewhere classified, initial encounter; J45.909 Unspecified asthma, uncomplicated; Z88.1 Allergy status to other antibiotic agents; Z79.890 Hormone replacement therapy; E66.01 Morbid (severe) obesity due to excess calories; Y83.4 Other reconstructive surgery as the cause of abnormal reaction of the patient, or of later complication, without mention of misadventure at the time of the procedure; Z79.51 Long term (current) use of inhaled steroids; Z87.891 Personal history of nicotine dependence; I10 Essential (primary) hypertension; I89.0 Lymphedema, not elsewhere classified; Z22.321 Carrier or suspected carrier of Methicillin susceptible Staphylococcus aureus; Z96.652 Presence of left artificial knee joint; Z79.899 Other long term (current) drug therapy; Z68.41 Body mass index [BMI] 40.0-44.9, adult; T81.89XA Other complications of procedures, not elsewhere classified, initial encounter

== ENCOUNTER 2022-02-12 11:44 | Inpatient (IN) ==
[2022-02-12] MEDS ORDERED: VANCOMYCIN HCL 1,500 MG in SODIUM CHLORIDE 0.9% 500 ML IV ONE (12:09)
[2022-02-12] MEDS ORDERED: PIPERACILLIN/TAZOBACTAM 3.375 GM in DEXTROSE 5% 100 ML/100 ML BAG IV STA (12:09)
[2022-02-12] MEDS ORDERED: VANCOMYCIN CONSULT ACTIVE PRN (12:09)
--- NOTE | 2022-02-12 12:09 | Emergency Department Note ---
History of Present Illness General Chief complaint: Knee Injury/Pain Stated complaint: KNEE PAIN, ANTIBIOTICS UNTIL PROCEDURE Time Seen by Provider: 02/12/22 11:55 History of Present Illness Maximum Pain Intensity: 4 This is a 66-year-old female that presents to the emergency department referred by local orthopedic office with complaints of "knee pain, antibiotics until procedure". The patient states that she underwent left total knee replacement on 12-29-2021. This was with Dr. Oliva of orthopedics. She has been doing okay in the postoperative setting however last evening the knee wound dehisced at the inferior portion of the wound. No known trauma or injury to the area. Current pain 12/13. She presented to her orthopedic surgeon's office today. Samples were taken of fluid from the left knee area. Plan was initial for direct admit/straight to preop holding however was directed to the emergency department as there are no beds at the current time. Home Medications Medication Instructions Recorded Confirmed Type cetirizine 10 mg tablet (Zyrtec) 10 mg PO HS 07/25/18 02/12/22 History cyanocobalamin (vitamin B-12) 1,000 mcg PO QAM 07/25/18 02/12/22 History 1,000 mcg tablet (Vitamin B-12) fluticasone 250 mcg-salmeterol 50 1 inh INHALATION BID 07/25/18 02/12/22 History mcg/dose blistr powdr for inhalation (Advair Diskus) furosemide 40 mg tablet 40 mg PO QPM PRN 07/25/18 02/12/22 History levothyroxine 175 mcg tablet 175 mcg PO QAM 07/25/18 02/12/22 History montelukast 10 mg tablet 10 mg PO PM 07/25/18 02/12/22 History terazosin 2 mg capsule 2 mg PO HS 07/25/18 02/12/22 History acetazolamide 250 mg tablet 250 mg PO BID 05/13/21 02/12/22 History albuterol sulfate 0.63 mg/3 mL 0.63 mg INHALATION Q4H PRN 05/13/21 02/12/22 History solution for nebulization albuterol sulfate 90 mcg/actuation 1 inh INHALATION QID PRN 05/13/21 02/12/22 History aerosol inhaler hyoscyamine sulfate 0.125 mg 0.125 mg PO BID PRN 05/13/21 02/12/22 History tablet (Levsin) potassium chloride 20 mEq 20 meq PO QAM 05/13/21 02/12/22 History tablet,extended release aspirin 325 mg tablet,delayed 325 mg PO BID #30 tab 01/22/22 02/12/22 Rx release (Ecotrin) oxycodone 5 mg tablet 5 - 10 mg PO Q6H PRN #20 tab 01/22/22 02/12/22 Rx Allergies Allergy/AdvReac Type Severity Reaction Status Date / Time levofloxacin Allergy Severe Anaphylaxis Verified 12/29/21 08:44 Past Med/Surg History Medical History Anemia Arthritis Asthma Stable, no inhaler use "for a while" GERD (gastroesophageal reflux disease) controlled Hx of deep venous thrombosis LLE (35+ years ago) Hx of pancreatitis 10 years ago Hyperlipidemia Hypertension Hypothyroidism Lumbar herniated disc Lymphedema Morbid obesity 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 SARS-CoV-2 positive Covid positive 11/01/21 ([facility]) > asymptomatic (pt was being tested through work, [facility] report scanned into [employer]) Surgical History H/O oophorectomy History of ankle surgery Right Left ligament repair History of bowel resection r/t bowel obstruction History of cholecystectomy History of colonoscopy History of ERCP History of hysterectomy History of total knee replacement Right (2010- done under spinal anesthesia; [facility]) [place] teeth removed Family History Mother Family history of diabetes mellitus Family hx of colon cancer Brother Family history of diabetes mellitus Other No family history of adverse response to anesthesia Social History Smoking Status: Former smoker Second Hand Exposure: No; Hx Alcohol Use: No Hx Substance Use: No Preferred Language: Kiswahili Communication Ability: Effective Civil Draftsman Required: No Beliefs That Will Affect Care: None Current Living Situation: Spouse Feels Safe at Home: Yes Safety Concerns: Feels Safe At This Time Assistive Devices: Cane, Glasses and Walker Review of Systems A total of 10 systems reviewed and were otherwise negative Physical Exam Vital Signs Vital Signs - 24 hr 02/12/22 11:46 02/12/22 13:45 02/12/22 15:00 Temperature 36.7 C Temperature Source Temporal Artery Scan Pulse Rate 102 H Pulse Rate [Apical] Pulse Rate [Left Finger] 93 H 90 Pulse Rhythm [Apical] Pulse Strength [Apical] Respiratory Rate 20 17 16 Respiratory Effort / Characteristics Non-Labored Spontaneous Non-Labored Respiratory Depth Normal Respiratory Pattern Regular Blood Pressure 151/89 H Blood Pressure [Left Arm] 148/83 H 148/83 H Blood Pressure Mean 109 Blood Pressure Mean [Left Arm] 104 104 Blood Pressure Position [Left Arm] Pulse Oximetry 98 100 100 Oxygen Delivery Method Room Air Room Air Room Air Oxygen Flow Rate Sepsis Recent Fever Within 48 Hours No Sepsis New/Unexplained Change in Mental Status No Sepsis Action Taken by Nursing No Action Required 02/12/22 16:22 02/12/22 21:20 02/12/22 21:30 Temperature 37.4 C 36.6 C Temperature Source Oral Temporal Artery Scan Pulse Rate Pulse Rate [Apical] 86 87 80 Pulse Rate [Left Finger] Pulse Rhythm [Apical] Regular Regular Regular Pulse Strength [Apical] Normal Respiratory Rate 17 16 14 Respiratory Effort / Characteristics Non-Labored Spontaneous Non-Labored Spontaneous Non-Labored Spontaneous Respiratory Depth Normal Normal Normal Respiratory Pattern Regular Regular Regular Blood Pressure Blood Pressure [Left Arm] 161/85 H 131/84 132/93 Blood Pressure Mean Blood Pressure Mean [Left Arm] 110 99 106 Blood Pressure Position [Left Arm] Semi-fowlers Semi-fowlers Semi-fowlers Pulse Oximetry 100 100 100 Oxygen Delivery Method Room Air Oxymask Oxymask Oxygen Flow Rate 6 3 Sepsis Recent Fever Within 48 Hours Sepsis New/Unexplained Change in Mental Status Sepsis Action Taken by Nursing 02/12/22 21:40 02/12/22 21:50 02/12/22 22:00 Temperature Temperature Source Pulse Rate Pulse Rate [Apical] 81 73 73 Pulse Rate [Left Finger] Pulse Rhythm [Apical] Regular Regular Regular Pulse Strength [Apical] Respiratory Rate 16 13 18 Respiratory Effort / Characteristics Non-Labored Spontaneous Non-Labored Spontaneous Non-Labored Spontaneous Respiratory Depth Normal Normal Normal Respiratory Pattern Regular Regular Regular Blood Pressure Blood Pressure [Left Arm] 128/70 139/84 144/79 H Blood Pressure Mean Blood Pressure Mean [Left Arm] 89 102 100 Blood Pressure Position [Left Arm] Semi-fowlers Semi-fowlers Semi-fowlers Pulse Oximetry 98 99 96 Oxygen Delivery Method Oxymask Oxymask Room Air Oxygen Flow Rate 3 3 Sepsis Recent Fever Within 48 Hours Sepsis New/Unexplained Change in Mental Status Sepsis Action Taken by Nursing 02/12/22 22:10 Temperature 36.5 C Temperature Source Temporal Artery Scan Pulse Rate Pulse Rate [Apical] 73 Pulse Rate [Left Finger] Pulse Rhythm [Apical] Regular Pulse Strength [Apical] Respiratory Rate 14 Respiratory Effort / Characteristics Non-Labored Spontaneous Respiratory Depth Normal Respiratory Pattern Regular Blood Pressure Blood Pressure [Left Arm] 133/90 Blood Pressure Mean Blood Pressure Mean [Left Arm] 104 Blood Pressure Position [Left Arm] Semi-fowlers Pulse Oximetry 96 Oxygen Delivery Method Room Air Oxygen Flow Rate Sepsis Recent Fever Within 48 Hours Sepsis New/Unexplained Change in Mental Status Sepsis Action Taken by Nursing VITAL SIGNS - Vital signs and nursing notes were reviewed. Mildly hypertensive, otherwise stable. GENERAL - 66-year-old female appearing her stated age who is in no acute distress. Communicates well with provider and answers questions appropriately. SKIN -vertical left knee wound incision with inferior wound dehiscence noted with a small amount of surrounding erythema. Overlying this is a gauze/bandage. EXTREMITIES -no evidence of septic arthritis clinically. Patient's left lower extremity is well-perfused and without deficit. Course Administered Medications Acetaminophen (Acetaminophen 500 Mg Tab) 1,000 mg PO Q8H [facility] Stop: 03/14/22 22:59 Last Admin: 02/13/22 05:52 Dose: 1,000 mg Documented by: [id number] Admin: 02/12/22 23:20 Dose: 1,000 mg Documented by: [id number] Acetazolamide (Acetazolamide 250 Mg Tab) 250 mg PO [id number] [facility] Stop: 03/15/22 08:59 Last Admin: 02/13/22 00:15 Dose: 250 mg Documented by: [id number] Cetirizine HCl (Cetirizine Hcl 10 Mg Tablet) 10 mg PO HS [facility] Stop: 03/15/22 20:59 Last Admin: 02/13/22 00:53 Dose: 10 mg Documented by: [id number] Piperacillin Sod/Tazobactam (Sod 4.5 gm/ Dextrose) 120 mls @ 30 mls/hr IV Q8H [facility]; Protocol Stop: 02/20/22 05:59 Last Admin: 02/13/22 05:48 Dose: 30 mls/hr Documented by: [id number] Vancomycin HCl 1,250 mg/ (Sodium Chloride) 275 mls @ 200 mls/hr IV Q12H [facility] Stop: 02/20/22 00:00 Last Infusion: 02/13/22 02:22 Dose: 0 mls/hr Documented by: [id number] Admin: 02/13/22 00:50 Dose: 200 mls/hr Documented by: [id number] Levothyroxine Sodium (Levothyroxine Sodium 175 Mcg Tablet) 175 mcg PO DAILYBB [facility] Stop: 03/15/22 06:29 Last Admin: 02/13/22 05:52 Dose: 175 mcg Documented by: [id number] Montelukast Sodium (Montelukast Sodium 10 Mg Tablet) 10 mg PO PM [facility] Stop: 03/15/22 20:59 Last Admin: 02/13/22 00:14 Dose: 10 mg Documented by: [id number] Oxycodone HCl (Oxycodone Hcl Ir 5 Mg Tab (Immediate Release)) 5 - 10 mg PO Q6H PRN PRN Reason: pain Stop: 02/26/22 22:45 Last Admin: 02/13/22 01:43 Dose: 10 mg Documented by: [id number] Terazosin HCl (Terazosin Hcl 1 Mg Cap) 2 mg PO HS [facility] Stop: 03/15/22 20:59 Last Admin: 02/13/22 00:14 Dose: 2 mg Documented by: [id number] Discontinued Medications Cefazolin Sodium (Cefazolin 330 Mg/Ml 1 Gm Vial) Confirm Administered Dose 990 mg .ROUTE .STK-MED [facility] Stop: 02/12/22 18:43 Last Admin: 02/12/22 19:50 Dose: 990 mg Documented by: [id number] Fentanyl Citrate (Fentanyl Citrate 100 Mcg/2 Ml Vial) 25 mcg IV Q5M PRN PRN Reason: PACU Use Only-Pain Stop: 02/13/22 04:19 Last Admin: 02/12/22 22:05 Dose: 25 mcg Documented by: [id number] Admin: 02/12/22 21:38 Dose: 25 mcg Documented by: [id number] Admin: 02/12/22 21:31 Dose: 25 mcg Documented by: [id number] Fentanyl Citrate (Fentanyl Citrate 100 Mcg/2 Ml Vial) Confirm Administered Dose 100 mcg .ROUTE .STK-MED ONE Stop: 02/12/22 21:32 Last Admin: 02/12/22 22:22 Dose: Not Given Documented by: [id number] Vancomycin HCl 1,500 mg/ (Sodium Chloride) 530 mls @ 200 mls/hr IV NOW ONE Stop: 02/12/22 14:47 Last Infusion: 02/12/22 16:08 Dose: 0 mls/hr Documented by: [id number] Admin: 02/12/22 13:33 Dose: 200 mls/hr Documented by: [id number] Piperacillin Sod/Tazobactam (Sod 3.375 gm/ Dextrose) 100 ml in 115 mls @ 230 mls/hr IV NOW STA Stop: 02/12/22 12:38 Last Infusion: 02/12/22 13:09 Dose: 0 mls/hr Documented by: [id number] Admin: 02/12/22 12:39 Dose: 230 mls/hr Documented by: [id number] Cefazolin Sodium (Ancef 2000mg) 2,000 mg in 15 mls @ 3.75 mls/min IV ONCE ONE Stop: 02/12/22 20:42 Last Admin: 02/12/22 20:07 Dose: 3.75 mls/min Documented by: [id number] Sodium Chloride (Nss 1000ml) 1,000 mls @ 100 mls/hr IV .Q10H [facility] Stop: 02/13/22 06:00 Last Infusion: 02/13/22 05:47 Dose: 0 mls/hr Documented by: [id number] Admin: 02/12/22 23:19 Dose: 100 mls/hr Documented by: [id number] Piperacillin Sod/Tazobactam (Sod 4.5 gm/ Dextrose) 120 mls @ 200 mls/hr IV NOW ONE; Protocol Stop: 02/13/22 00:05 Last Infusion: 02/13/22 01:26 Dose: 0 mls/hr Documented by: [id number] Admin: 02/13/22 00:04 Dose: 200 mls/hr Documented by: [id number] Meperidine HCl (Meperidine Hcl 25 Mg/Ml Carp/Vial) Confirm Administered Dose 25 mg .ROUTE .STK-MED ONE Stop: 02/12/22 21:24 Last Admin: 02/12/22 21:24 Dose: 25 mg Documented by: [id number] Meperidine HCl (Meperidine Hcl 50 Mg/Ml Carp) 25 mg IV ONE ONE Stop: 02/12/22 21:26 Last Admin: 02/12/22 22:22 Dose: Not Given Documented by: [id number] Sodium Hypochlorite (Dakin's Soln 0.125% Quarter Strength 473 Ml Btl) 1 appln EXT NOW ONE Stop: 02/12/22 19:32 Last Admin: 02/12/22 22:55 Dose: Not Given Documented by: [id number] Medical Decision Making Laboratory Data Result diagrams: 02/12/22 12:19 02/12/22 12:19 Lab Results 02/12/22 02/12/22 02/12/22 Range/Units 12:19 12:19 12:19 WBC 3.97 L (4.8-10.8) K/uL RBC 3.68 L (4.2-5.4) M/uL Hgb 11.2 L (12.0-16.0) g/dL Hct 35.5 L (37-47) % MCV 96.5 (80-100) fL MCH 30.4 (25-34) pg MCHC 31.5 L (32-36) g/dL RDW Std Deviation 50.9 H (36.4-46.3) fL RDW Coeff of Rui 14.3 (11.5-14.5) % Plt Count 198 (130-400) K/uL MPV 10.1 (7.4-10.4) fL Immature Gran % (Auto) 0.0 % Neut % (Auto) 78.3 % Lymph % (Auto) 14.6 % Preston % (Auto) 5.3 % Eos % (Auto) 1.5 % Baso % (Auto) 0.3 % Neut # (Auto) 3.11 (1.4-6.5) K/uL Lymph # (Auto) 0.58 L (1.2-3.4) K/uL Preston # (Auto) 0.21 (0.11-0.59) K/uL Eos # (Auto) 0.06 (0-0.5) K/uL Baso # (Auto) 0.01 (0-0.2) K/uL Immature Gran # (Auto) 0.00 (0.00-0.02) K/uL ESR 22 (0-30) mm/hr Sodium 141 (136-145) mmol/L Potassium 3.6 (3.5-5.1) mmol/L Chloride 114 H (98-107) mmol/L Carbon Dioxide 20 L (21-32) mmol/L Anion Gap 7 (3-11) BUN 17 (6-23) mg/dl Creatinine 0.76 (0.6-1.2) mg/dl Est Cr Clr Drug Dosing 89.8 ml/min Est GFR ( Amer) 96.1 ml/min Est GFR (Non-Af Amer) 82.9 ml/min BUN/Creatinine Ratio 22.4 H (10-20) Glucose 92 (70-99(Fasting)) mg/dl Calcium 8.8 (8.5-10.1) mg/dl Total Bilirubin 0.5 (0.2-1.0) mg/dl AST 9 L (13-39) U/L ALT 6 L (7-52) U/L Alkaline Phosphatase 75 (34-104) U/L C-Reactive Protein 4.20 H (0-0.5) mg/dl Total Protein 6.3 (6.0-8.3) gm/dl Albumin 3.8 (3.4-5.0) gm/dl Globulin 2.5 (2.5-4.0) gm/dl Albumin/Globulin Ratio 1.5 (0.9-2) SARS-CoV-2, RNA, NAAT (NEGATIVE) 02/12/22 Range/Units 12:33 WBC (4.8-10.8) K/uL RBC (4.2-5.4) M/uL Hgb (12.0-16.0) g/dL Hct (37-47) % MCV (80-100) fL MCH (25-34) pg MCHC (32-36) g/dL RDW Std Deviation (36.4-46.3) fL RDW Coeff of Rui (11.5-14.5) % Plt Count (130-400) K/uL MPV (7.4-10.4) fL Immature Gran % (Auto) % Neut % (Auto) % Lymph % (Auto) % Preston % (Auto) % Eos % (Auto) % Baso % (Auto) % Neut # (Auto) (1.4-6.5) K/uL Lymph # (Auto) (1.2-3.4) K/uL Preston # (Auto) (0.11-0.59) K/uL Eos # (Auto) (0-0.5) K/uL Baso # (Auto) (0-0.2) K/uL Immature Gran # (Auto) (0.00-0.02) K/uL ESR (0-30) mm/hr Sodium (136-145) mmol/L Potassium (3.5-5.1) mmol/L Chloride (98-107) mmol/L Carbon Dioxide (21-32) mmol/L Anion Gap (3-11) BUN (6-23) mg/dl Creatinine (0.6-1.2) mg/dl Est Cr Clr Drug Dosing ml/min Est GFR ( Amer) ml/min Est GFR (Non-Af Amer) ml/min BUN/Creatinine Ratio (10-20) Glucose (70-99(Fasting)) mg/dl Calcium (8.5-10.1) mg/dl Total Bilirubin (0.2-1.0) mg/dl AST (13-39) U/L ALT (7-52) U/L Alkaline Phosphatase (34-104) U/L C-Reactive Protein (0-0.5) mg/dl Total Protein (6.0-8.3) gm/dl Albumin (3.4-5.0) gm/dl Globulin (2.5-4.0) gm/dl Albumin/Globulin Ratio (0.9-2) SARS-CoV-2, RNA, NAAT NEGATIVE (NEGATIVE) MDM Narrative Patient was seen and evaluated as above in room 809. Review was performed of nursing notes and vital signs. I did review pertinent previous visits and patient history. After obtaining a thorough history and physical examination the above work up was performed. Patient presents to us today for evaluation of left knee wound in the setting of recent procedure. She was referred to be admitted with an surgical intervention however based on current bed status patient directed to the emergency department. She notes she is to have surgery in a few hours. She states that she cannot undergo anesthesia just quite yet noting that she had food just a few hours ago. At 12:05 PM I did call the clinical coordinator to clarify the plan of care for the patient as she was sent from the orthopedic office and the plan was for operative intervention in the near future. Clinical coordinator informed me that at the present time there are no beds to accommodate the patient in the preop area. Recommendation and plan is for the patient to be in the emergency department to undergo IV antibiotics and testing with then operative intervention following patient being in the ED. Options of care were discussed with the patient. I extensively reviewed the orders sent with the patient from orthopedics. I also discussed this with Dr. Oliva of orthopedics. I did order antibiotics per orthopedic recommendations/order. I also ordered laboratory studies. They had already obtained samples from the knee joint with orders pending. Patient tolerated the IV Zosyn and IV vancomycin without issue. There is leukopenia with mild anemia noted. There is no evidence of kidney or liver failure. CRP 4.2. COVID test negative. Patient will be taken to the operative suite for further evaluation and management. Patient reevaluated several times and was resting comfortably. She respectfully declined pain medication. Please refer to further docu mentation regarding her stay. I will note that on entry the patient noted that her bandage on the knee was loose and the tape did not seem to be sticking. I did ask the orthopedic doctor options for this and at this time I did place roll gauze around this region to keep the gauze in place. This was done without applying this too tightly. She was neurovascularly intact post placement of this gauze. GCS: 15 In the evaluation and treatment of this patient the following differential diagnoses were entertained: Wound dehiscence, infection, Impression & Plan Wound dehiscence Discharge Plan Visit Data Chief Complaint: Knee Injury/Pain Stated Complaint: KNEE PAIN, ANTIBIOTICS UNTIL PROCEDURE ED Provider: [facility] ED Midlevel Provider: Garrick Husain Discharge Problem: Wound dehiscence Patient Disposition: Still a Patient Condition: Good Discharge Instructions Interventions: ED Discharge Assessment Last Done: 02/12/22 16:08
[2022-02-12 12:47] LABS: Hematocrit (blood only) 35.5 % (37-47); Hemoglobin 11.2 g/dL (12.0-16.0); Mean Corpuscular Hemoglobin 30.4 pg (25-34); Mean Corpuscular Hgb Conc 31.5 g/dL (32-36); Mean Corpuscular Volume 96.5 fL (80-100); Mean Platelet Volume 10.1 fL (7.4-10.4); Platelet Count 198 K/uL (130-400); RDW Coefficient of Variation 14.3 % (11.5-14.5); RDW Standard Deviation 50.9 fL (36.4-46.3); Red Blood Count 3.68 M/uL (4.2-5.4); White Blood Count 3.97 K/uL (4.8-10.8)
[2022-02-12 13:07] LABS: Basophils # (auto) 0.01 K/uL (0-0.2); Basophils % (auto) 0.3 %; Eosinophils # (auto) 0.06 K/uL (0-0.5); Eosinophils % (auto) 1.5 %; Lymphocytes # (auto) 0.58 K/uL (1.2-3.4); Lymphocytes % (auto) 14.6 %; Monocytes # (auto) 0.21 K/uL (0.11-0.59); Monocytes % (auto) 5.3 %; Neutrophils # (auto) 3.11 K/uL (1.4-6.5); Neutrophils % (auto) 78.3 %
[2022-02-12 13:16] LABS: Albumin Globulin Ratio 1.5 (0.9-2); Albumin Level 3.8 gm/dl (3.4-5.0); BUN Creatinine Ratio 22.4 (10-20); Bilirubin,Total 0.5 mg/dl (0.2-1.0); C Reactive Protein 4.2 mg/dl (0-0.5); Calcium 8.8 mg/dl (8.5-10.1); Creatinine Clr Calc Pharmacy 89.8 ml/min; Est GFR (African American) 96.1 ml/min; Est GFR (Non-African American) 82.9 ml/min; Globulin 2.5 gm/dl (2.5-4.0); Potassium 3.6 mmol/L (3.5-5.1); Total Protein 6.3 gm/dl (6.0-8.3)
--- NOTE | 2022-02-12 14:22 | History & Physical Report ---
Date of Service February 12, 2022 Assessment & Plan (1) Wound dehiscence: Plan: Patient is almost 6-week status post left total knee arthroplasty. She had some wound dehiscence this morning of the distal aspect of the incision. This was at the previous irrigation debridement site performed on January 19, 2022. We will plan for admission and an irrigation and debridement of her left knee wound, possible irrigation debridement of the left knee joint with polyexchange, p ossible wound VAC application later today. She did have breakfast around 8 AM and we will plan for surgery this afternoon after 4 PM. She is currently NPO. She was sent directly to the emergency room to be taken to the OR from there and admitted postoperatively. She was started on IV vancomycin and Zosyn for broad- spectrum gram-positive and gram-negative coverage. Depending on the culture res ults that were obtained of the wound and also the joint today in the office we may consider doing a complete knee washout. She can weight-bear as tolerated. New dressings were applied to her left knee. They can be reinforced as necessary. She can continue use her walker to assist with ambulation. She is on aspirin 325 mg p.o. twice daily D for DVT prophylaxis which will be held until after surgery. We may resume this or even start her on some Lovenox short-term after her procedure. She understands and agrees with the plan. All questions were answered. Informed consent was obtained. Risks and complications of the procedure were explained to the patient and include but are not limited to infection, pain, bleeding, scarring, nerve and blood vessel damage, wound problems, weakness, stiffness, incomplete relief of symptoms, tendon or ligament injury, blood clots, embolisms, heart attack, stroke and . Surgical site was marked. Will obtain a preoperative COVID test today in the emergency room. Also obtain a preoperative CBC, BMP, ESR, CRP. We will continue to follow along with cultures. Admission and Anticipated Discharge Date Admission Date: February 12, 2022 History of Present Illness Chief Complaint: Open wound left knee Primary Care Provider: Thien Guaman MD Patient is a pleasant 66-year-old female who presented to the office today with complaints of an open wound to her left knee. She is status post left total knee arthroplasty by Dr. Oliva on December 29, 2021. She then developed some delayed surgical wound healing and underwent an irrigation and debridement of her left total knee wound on January 19, 2022. She was placed on IV Ancef and sent home on Keflex. Her intraoperative cultures grew Methicillin sensitive Staph aureus. On February 05 she presented to the office for wound check and her incision appears to be completely healed. However retaining sutures were removed and Steri-Strips were applied. Over the last 2 days she has developed some increased burning sensation, redness and warmth at the distal aspect of her total knee incision. She states has been getting more painful throughout the last day or so. She denies any chills but did have a fever of 101.5 last evening. She states that she was ambulating throughout her home and developed some drainage down her leg and noticed a lot of bleeding coming from the distal aspect of the incision. She denies having any type of fluctuance there or a bump or pimple that ruptured. She states that incision just opened up and it started bleeding. She called this morning to Get further instructions on what to do. We asked her to come directly to the office. She had already had breakfast. While in the office she was found to have a small centimeter circumf erential wound at the distal aspect of her incision from her previous I&D site. It was actively draining some serous sanguinous bloody type fluid. She had a trace effusion to her left knee joint. The rest of the incision the left knee itself appears benign with no erythema or warmth. She tolerates gentle range of motion and was progressing nicely in physical therapy. She continues to use a walker to assist with ambulation. Joint aspiration of her left knee was performed today and sent for stat cell count and fluid analysis, aerobic and anaerobic cultures. We also did a wound culture of the open wound itself. And this was sent for anaerobic and aerobic cultures. We elected to do a direct admission to the hospital although they are not doing that currently. She was sent to the emergency room and placed on the operating room schedule. She was made NPO. She was started on IV vancomycin and Zosyn. She will be n.p.o. it with plans for surgery later today for an irrigation debridement of her left knee wound, possible irrigation debridement and probably exchange of her left knee joint and possible wound VAC application. Allergies Allergy/AdvReac Type Severity Reaction Status Date / Time levofloxacin Allergy Severe Anaphylaxis Verified 12/29/21 08:44 Home Medications Medication Instructions Recorded Confirmed Type cetirizine 10 mg tablet (Zyrtec) 10 mg PO HS 07/25/18 02/12/22 History cyanocobalamin (vitamin B-12) 1,000 mcg PO QAM 07/25/18 02/12/22 History 1,000 mcg tablet (Vitamin B-12) fluticasone 250 mcg-salmeterol 50 1 inh INHALATION BID 07/25/18 02/12/22 History mcg/dose blistr powdr for inhalation (Advair Diskus) furosemide 40 mg tablet 40 mg PO QPM PRN 07/25/18 02/12/22 History levothyroxine 175 mcg tablet 175 mcg PO QAM 07/25/18 02/12/22 History montelukast 10 mg tablet 10 mg PO PM 07/25/18 02/12/22 History terazosin 2 mg capsule 2 mg PO HS 07/25/18 02/12/22 History acetazolamide 250 mg tablet 250 mg PO BID 05/13/21 02/12/22 History albuterol sulfate 0.63 mg/3 mL 0.63 mg INHALATION Q4H PRN 05/13/21 02/12/22 History solution for nebulization albuterol sulfate 90 mcg/actuation 1 inh INHALATION QID PRN 05/13/21 02/12/22 History aerosol inhaler hyoscyamine sulfate 0.125 mg 0.125 mg PO BID PRN 05/13/21 02/12/22 History tablet (Levsin) potassium chloride 20 mEq 20 meq PO QAM 05/13/21 02/12/22 History tablet,extended release aspirin 325 mg tablet,delayed 325 mg PO BID #30 tab 01/22/22 02/12/22 Rx release (Ecotrin) oxycodone 5 mg tablet 5 - 10 mg PO Q6H PRN #20 tab 01/22/22 02/12/22 Rx Past Med/Surg History Medical History Arthritis Asthma Stable, no inhaler use "for a while" GERD (gastroesophageal reflux disease) controlled Hx of deep venous thrombosis LLE (35+ years ago) Hx of pancreatitis 10 years ago Hyperlipidemia Hypertension Hypothyroidism Lumbar herniated disc Lymphedema Morbid obesity 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 SARS-CoV-2 positive Covid positive 11/01/21 ([facility]) > asymptomatic (pt was being tested through work, S report scanned into [employer]) Surgical History H/O oophorectomy History of ankle surgery Right Left ligament repair History of bowel resection r/t bowel obstruction History of cholecystectomy History of colonoscopy History of ERCP History of hysterectomy History of total knee replacement Right (2010- done under spinal anesthesia; [facility]) [place] teeth removed Family History Mother Family history of diabetes mellitus Family hx of colon cancer Brother Family history of diabetes mellitus Other No family history of adverse response to anesthesia Social History Smoking Status: Former smoker Second Hand Exposure: No; Hx Alcohol Use: Yes Hx Substance Use: No Preferred Language: Greek Communication Ability: Effective Smoke Jumper Required: No Beliefs That Will Affect Care: None Current Living Situation: Spouse Feels Safe at Home: Yes Assistive Devices: Walker Review of Systems Review of Systems: As per HPI otherwise reviewed and noncontributory. Physical Exam Constitutional: WD/WN, vitals as above Vital signs: Temperature: 36.7 C, blood pressure 140/84, heart rate is 82 bpm, oxygenation on room air is 98%, respiratory rate is 18 breaths/min, pain score is 3/10. Height: 162 cm, weight: 113 kg, BMI: 43 Eyes: PERRL, conjunctivae normal, anicteric sclerae ENMT: external ear and nose normal, oropharynx normal Neck: trachea midline, no thyromegaly Respiratory: normal respiratory effort, lungs clear to auscultation Cardiovascular: Rate/Rhythm: regular rate and regular rhythm Heart Sounds: normal S1 and normal S2 Extremities: normal capillary refill and + edema (Left lower extremity, chronic); no calf tenderness Chest (Breasts): Chest: normal inspection of chest Gastrointestinal (Abdomen): normal bowel sounds, soft, nontender, no hepatosplenomegaly Musculoskeletal: Exam of her left knee: She does have a centimeter circumferential open wound at the distal aspect of her incision with some surrounding erythema. Active serosanguineous bloody drainage from the wound. No gross purulence or pus. Mildly tender with palpation. Mild surrounding erythema locally. Trace effusion to her left knee joint. Incision otherwise benign and healed nicely. No warmth or erythema around the knee itself. No ecchymosis. Chronic lower extremity edema. Distal pulses trace palpable due to the edema. Sensation is normal of her left foot. She is able to internally straight leg raise. Flexion to about 105 degrees comfortably today. Tolerates logrolling of her left hip without any discomfort in her hip joint. She does ambulate with the assistance of a walker. Skin: no rashes, warm and dry Neurologic: PERRL, EOMI, accommodation nl, no face palsy, no dysarthria normal touch/pain/proprioception and moves all extremities Psychiatric: A+Ox3, euthymic affect Results & Data Results & Data ([facility]) Vital Signs (Past 12 Hours) Vital Signs Temp Pulse Resp BP Pulse Ox 02/12/22 11:46 36.7 C 102 H 20 151/89 H 98 Laboratory Results 02/12/22 02/12/22 02/12/22 Range/Units 12:33 12:19 12:19 WBC (4.8-10.8) K/uL RBC (4.2-5.4) M/uL Hgb (12.0-16.0) g/dL Hct (37-47) % MCV (80-100) fL MCH (25-34) pg MCHC (32-36) g/dL RDW Std Deviation (36.4-46.3) fL RDW Coeff of Rui (11.5-14.5) % Plt Count (130-400) K/uL MPV (7.4-10.4) fL Immature Gran % (Auto) % Neut % (Auto) % Lymph % (Auto) % Day % (Auto) % Eos % (Auto) % Baso % (Auto) % Neut # (Auto) (1.4-6.5) K/uL Lymph # (Auto) (1.2-3.4) K/uL Day # (Auto) (0.11-0.59) K/uL Eos # (Auto) (0-0.5) K/uL Baso # (Auto) (0-0.2) K/uL Immature Gran # (Auto) (0.00-0.02) K/uL ESR 22 (0-30) mm/hr Sodium 141 (136-145) mmol/L Potassium 3.6 (3.5-5.1) mmol/L Chloride 114 H (98-107) mmol/L Carbon Dioxide 20 L (21-32) mmol/L Anion Gap 7 (3-11) BUN 17 (6-23) mg/dl Creatinine 0.76 (0.6-1.2) mg/dl Est Cr Clr Drug Dosing 89.8 ml/min Est GFR ( Amer) 96.1 ml/min Est GFR (Non-Af Amer) 82.9 ml/min BUN/Creatinine Ratio 22.4 H (10-20) Glucose 92 (70-99(Fasting)) mg/dl Calcium 8.8 (8.5-10.1) mg/dl Total Bilirubin 0.5 (0.2-1.0) mg/dl AST 9 L (13-39) U/L ALT 6 L (7-52) U/L Alkaline Phosphatase 75 (34-104) U/L C-Reactive Protein 4.20 H (0-0.5) mg/dl Total Protein 6.3 (6.0-8.3) gm/dl Albumin 3.8 (3.4-5.0) gm/dl Globulin 2.5 (2.5-4.0) gm/dl Albumin/Globulin Ratio 1.5 (0.9-2) SARS-CoV-2, RNA, NAAT NEGATIVE (NEGATIVE) 02/12/22 Range/Units 12:19 WBC 3.97 L (4.8-10.8) K/uL RBC 3.68 L (4.2-5.4) M/uL Hgb 11.2 L (12.0-16.0) g/dL Hct 35.5 L (37-47) % MCV 96.5 (80-100) fL MCH 30.4 (25-34) pg MCHC 31.5 L (32-36) g/dL RDW Std Deviation 50.9 H (36.4-46.3) fL RDW Coeff of Rui 14.3 (11.5-14.5) % Plt Count 198 (130-400) K/uL MPV 10.1 (7.4-10.4) fL Immature Gran % (Auto) 0.0 % Neut % (Auto) 78.3 % Lymph % (Auto) 14.6 % Day % (Auto) 5.3 % Eos % (Auto) 1.5 % Baso % (Auto) 0.3 % Neut # (Auto) 3.11 (1.4-6.5) K/uL Lymph # (Auto) 0.58 L (1.2-3.4) K/uL Day # (Auto) 0.21 (0.11-0.59) K/uL Eos # (Auto) 0.06 (0-0.5) K/uL Baso # (Auto) 0.01 (0-0.2) K/uL Immature Gran # (Auto) 0.00 (0.00-0.02) K/uL ESR (0-30) mm/hr Sodium (136-145) mmol/L Potassium (3.5-5.1) mmol/L Chloride (98-107) mmol/L Carbon Dioxide (21-32) mmol/L Anion Gap (3-11) BUN (6-23) mg/dl Creatinine (0.6-1.2) mg/dl Est Cr Clr Drug Dosing ml/min Est GFR ( Amer) ml/min Est GFR (Non-Af Amer) ml/min BUN/Creatinine Ratio (10-20) Glucose (70-99(Fasting)) mg/dl Calcium (8.5-10.1) mg/dl Total Bilirubin (0.2-1.0) mg/dl AST (13-39) U/L ALT (7-52) U/L Alkaline Phosphatase (34-104) U/L C-Reactive Protein (0-0.5) mg/dl Total Protein (6.0-8.3) gm/dl Albumin (3.4-5.0) gm/dl Globulin (2.5-4.0) gm/dl Albumin/Globulin Ratio (0.9-2) SARS-CoV-2, RNA, NAAT (NEGATIVE) Diagnostic Findings No radiology images taken today. Code Status & VTE Plan VTE Prophylaxis Plan VTE Prophylaxis will be ordered: Yes
--- NOTE | 2022-02-12 15:00 | Anesthesiology Consultation ---
Date of Service February 12, 2022 Assessment & Plan (1) Encounter for pre-operative examination: Chart Review Chart Review: Acceptable Risk for Surgery and Patient NOT seen in Pre Admission Testing Consults Requested none History Surgery Operation Date: 02/12/22 12:10 Proposed Procedures p Left Knee Wound Incision and Drainage, Possible Wound Vac, Possible Left Knee Joint Incision and Drainage with Poly Exchange - Bro Oliva MD Height/Weight Height: 5 ft 5 in Weight: 104.6 kg Allergies Allergy/AdvReac Type Severity Reaction Status Date / Time levofloxacin Allergy Severe Anaphylaxis Verified 12/29/21 08:44 Medications Home Medications Medication Instructions Recorded Confirmed Last Taken cetirizine 10 mg tablet (Zyrtec) 10 mg PO HS 07/25/18 02/12/22 12/28/21 21:00 cyanocobalamin (vitamin B-12) 1,000 mcg PO QAM 07/25/18 02/12/22 02/12/22 1,000 mcg tablet (Vitamin B-12) fluticasone 250 mcg-salmeterol 50 1 inh INHALATION BID 07/25/18 02/12/22 12/29/21 07:00 mcg/dose blistr powdr for inhalation (Advair Diskus) furosemide 40 mg tablet 40 mg PO QPM PRN 07/25/18 02/12/22 12/28/21 08:00 levothyroxine 175 mcg tablet 175 mcg PO QAM 07/25/18 02/12/22 02/12/22 montelukast 10 mg tablet 10 mg PO PM 07/25/18 02/12/22 12/28/21 21:00 terazosin 2 mg capsule 2 mg PO HS 07/25/18 02/12/22 12/28/21 21:00 acetazolamide 250 mg tablet 250 mg PO BID 05/13/21 02/12/22 02/12/22 albuterol sulfate 0.63 mg/3 mL 0.63 mg INHALATION Q4H PRN 05/13/21 02/12/22 Unknown solution for nebulization albuterol sulfate 90 mcg/actuation 1 inh INHALATION QID PRN 05/13/21 02/12/22 Unknown aerosol inhaler hyoscyamine sulfate 0.125 mg 0.125 mg PO BID PRN 05/13/21 02/12/22 Unknown tablet (Levsin) potassium chloride 20 mEq 20 meq PO QAM 05/13/21 02/12/22 02/12/22 tablet,extended release aspirin 325 mg tablet,delayed 325 mg PO BID #30 tab 01/22/22 02/12/22 02/12/22 release (Ecotrin) oxycodone 5 mg tablet 5 - 10 mg PO Q6H PRN #20 tab 01/22/22 02/12/22 Unknown Past Medical History Medical History Arthritis Asthma Stable, no inhaler use "for a while" GERD (gastroesophageal reflux disease) controlled Hx of deep venous thrombosis LLE (35+ years ago) Hx of pancreatitis 10 years ago Hyperlipidemia Hypertension Hypothyroidism Lumbar herniated disc Lymphedema Morbid obesity 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 SARS-CoV-2 positive Covid positive 11/01/21 ([facility]) > asymptomatic (pt was being tested through work, [facility] report scanned into [employer]) Past Family History Family History Mother Family history of diabetes mellitus Family hx of colon cancer Brother Family history of diabetes mellitus Other No family history of adverse response to anesthesia Past Surgical History Surgical History H/O oophorectomy History of ankle surgery Right Left ligament repair History of bowel resection r/t bowel obstruction History of cholecystectomy History of colonoscopy History of ERCP History of hysterectomy History of total knee replacement Right (2010- done under spinal anesthesia; [facility]) [place] teeth removed Social History Smoking Status: Former smoker tobacco type: cigarettes Hx Alcohol Use: Yes alcohol intake frequency: holidays/special occasions only Hx Substance Use: No substance use type: does not use Physical Exam Vital Signs Last Vital Signs Temp 98.1 F 02/12/22 11:46 Pulse 93 H 02/12/22 13:45 Resp 17 02/12/22 13:45 BP 148/83 H 02/12/22 13:45 Pulse Ox 100 02/12/22 13:45 Testing Laboratory Results 02/12/22 12:19 02/12/22 12:19 Electrocardiogram Date: 05/18/21 Findings: + NSR @ Chest X-Ray Date: 05/18/21 Findings: + NAD
[2022-02-12] MEDS ORDERED: MIDAZOLAM HCL 1 MG/ML 2ML VIAL ONE ×2 (16:18→19:10)
[2022-02-12] MEDS ORDERED: fentaNYL citrate 100 MCG/2 ML VIAL ONE ×4 (16:19→21:31)
[2022-02-12] MEDS ORDERED: ceFAZolin 330 MG/ML 1 GM VIAL ONE (18:42)
[2022-02-12] MEDS ORDERED: DAKIN'S SOLN 0.125% QUARTER STRENGTH 473 ML BTL EXT ONE (19:31)
[2022-02-12] MEDS ORDERED: PROPOFOL IV EMULSION 10 MG/ML 20 ML VIAL IV ONE (20:04)
[2022-02-12] MEDS ORDERED: ROCURONIUM BROMIDE 10 MG/ML 5 ML VIAL IV ONE (20:04)
[2022-02-12] MEDS ORDERED: ONDANSETRON INJ 2 MG/ML 2 ML VIAL ONE ×2 (20:04→20:27)
[2022-02-12] MEDS ORDERED: DEXAMETHASONE SOD INJ 4 MG/ML VIAL ONE ×3 (20:04→20:27)
[2022-02-12] MEDS ORDERED: LIDOCAINE 2% 2 ML VIAL/AMP(20MG/ML) INFIL ONE (20:04)
[2022-02-12] MEDS ORDERED: LABETALOL HCL IV 5 MG/ML 20ML IV PRN (20:19)
[2022-02-12] MEDS ORDERED: ePHEDrine sulfate 50 MG/ML AMP IV PRN (20:19)
[2022-02-12] MEDS ORDERED: HYDROmorphone INJ 1 MG/ML SYRINGE IV PRN ×2 (20:19→22:46)
[2022-02-12] MEDS ORDERED: ATROPINE SULFATE 0.1 MG/ML 10ML SYR IV PRN (20:19)
[2022-02-12] MEDS ORDERED: PHENYLEPHRINE 100MCG/ML 5ML SYR IV PRN (20:19)
[2022-02-12] MEDS ORDERED: ONDANSETRON INJ 2 MG/ML 2 ML VIAL IV PRN ×2 (20:19→22:53)
[2022-02-12] MEDS ORDERED: MEPERIDINE HCL 25 MG/ML CARP/VIAL IV PRN (20:19)
[2022-02-12] MEDS ORDERED: GLYCOPYRROLATE 0.2 MG/ML VIAL ONE (20:34)
[2022-02-12] MEDS ORDERED: NEOSTIGMINE METHYLSULFATE 1 MG/ML 10ML VIAL ONE (20:34)
[2022-02-12] MEDS ORDERED: ceFAZolin 2000MG 2,000 MG/15 ML SYR IV ONE (20:39)
--- NOTE | 2022-02-12 21:17 | Operative Report ---
Post Operative Report Pre & Post Diagnosis Operation Date: 02/12/22 12:10 Pre-Op Diagnosis: Wound dehiscence, left knee Post-Op Diagnosis: Wound dehiscence, left knee with localized abscess and fat necrosis not involving the arthroplasty. I identified the patient and participated in the time-out.: Yes Procedure Operation Date: 02/12/22 12:10 Actual Procedures p Left Knee Wound Incision and Drainage, Wound Vac Application(Left) - Bro Oliva MD Surgeon Bro Oliva MD Chair Installer Kimberly Quinones physicians social human services assistants no resident or fellow available Estimated Blood Loss 5 Findings Consistent with Post-Op Diagnosis Specimens None Drains Wound VAC Anesthesia Type General Complications none Disposition Accompanied Patient To Recovery: No Disposition: Recovery Room Indications Angela is 6 weeks out from a left total knee arthroplasty. She had delayed healing of the lower portion of her wound. At 3 weeks postoperatively I brought her back to the operating room where I did a wound revision I&D and closure. That healed up completely. Intraoperative cultures at that time were negative. She received a short course of IV and oral antibiotics and otherwise did well until about yesterday. About 2 days ago she noted some increased discomfort in the lower portion of her knee and then last evening the wound spontaneously opened at its lower portion and fluid drained out. She came in was evaluated this morning. She reported a temp of 101.5 at home. The wound was cultured in the office. The knee was aspirated in the office. She has reported no change in her knee arthroplasty in terms of pain and swelling or loss of movement. The knee joint fluid that was aspirated was serosanguineous and nonpurulent in nature. Pulmonary related to the gram stain showed no organisms and some white blood cells. The white blood cell count within the fluid was about 1500. She was taken to the operating at this time for exploration of the wound irrigation debridement. If it does involve the arthroplasty were prepared to washout her knee and dual polyexchange. Description of Procedure Informed consent obtained. Patient identified. She identified the operative site as the left knee. I marked with my initials. Preoperative surgical timeout performed a preop dose of IV antibiotics was given. She is taken to the operating room positioned supine on the operating room table. The leg was prescribed prepped and draped in usual sterile fashion. Tourniquet applied to the left thigh but not inflated. A bump was placed under the left calf and also under the left hip. The knee did not show a significant effusion the incision was benign except for its most distal extent. Range of motion with gravity was 0-90 and she had no pathological laxity to cruciate or collateral ligament testing. Her leg is large. There was a 1 cm opening with surrounding erythema at the distal extent of the incision. DVT of prophylaxis postoperatively will be done with aspirin and early mobility plus mechanical devices. I introduced my finger into the wound and was able to identify fairly well-defi gabriela cavity. I was able to split this bluntly distally and then proximally each for about a centimeter to centimeter and a half. This yielded mucopurulent fluid and fatty necrosis type tissue. Digitally at the proximal wound was explored. It did not appear to extend proximally at all. After thoroughly debriding the wound I placed the knee through range of motion and also applied pressure down along the incision from proximal to distal and cannot evacuate any fluid out of the upper incision into the open wound. The skin margins of the abscess were sharply debrided with a scalpel the roman of the abscess were debrided with a curette and rongeur. There was no undermining. This lesion was 4 cm deep 2 to 3 cm wide and about 4 cm long. It was irrigated with pulsatile lavage 1500 cc followed by a liter of Betadine lavage followed by another 1500 cc of sterile saline. Meticulous hemostasis was achieved. I had open up the upper 1 cm of the incision in order to further explore the proximal wound area and identified that this was normal healed. Tissue without any evidence of propagation proximally. A silver sponge wound VAC was then applied within the wound. Prior to that a #1 nylon was used in a full-thickness near far far near suture to reapproximate the 1-1/2 cm split that I may proximally and to prevent further propagation proximally. The wound VAC was then arranged in the standard fashion and deployed without incident. Should the legs cleaned with wet and dry sponges to remove the Betadine. No further dressing would be necessary. The leg was cleaned wet and dry sponges she was awakened anesthesia difficulty taken to the recovery room in stable condition there were no specimens. Counts were correct blood loss 5 cc there were no complications. At the conclusion the operation patient's informed of my findings postop instructions were discussed. Plan is admit to the hospital follow-up on cultures continue IV antibiotics. Continue knee rehab and weight-bear as tolerated. Aspirin and SCDs for DVT prophylaxis I attest to the content of the Intraoperative Record and any orders documented therein. Any exceptions are noted below.
[2022-02-12] MEDS ORDERED: MEPERIDINE HCL 25 MG/ML CARP/VIAL ONE (21:23)
[2022-02-12] MEDS ORDERED: MEPERIDINE HCL 50 MG/ML CARP IV ONE (21:25)
[2022-02-12] MEDS: fentaNYL citrate 100 MCG/2 ML VIAL IV PRN ×3 (21:31→22:05)
--- NOTE | 2022-02-12 21:40 | Operative Report ---
Post Operative Report Pre & Post Diagnosis Operation Date: 02/12/22 12:10 Pre-Op Diagnosis: Wound dehiscence, left knee Post-Op Diagnosis: Wound dehiscence, left knee I identified the patient and participated in the time-out.: Yes Procedure Operation Date: 02/12/22 12:10 Actual Procedures p Left Knee Wound Incision and Drainage, Wound Vac Application(Left) - Bro Oliva MD Surgeon Bro Oliva MD Ventilating Engineer Kimberly Quinones physicians high school assistant principal no resident or fellow available Estimated Blood Loss 5 Findings Consistent with Post-Op Diagnosis Specimens None Anesthesia Type General Description of Procedure Patient was taken to the operating room and placed under general anesthesia. Timeout was performed. She was prepped and draped in routine sterile fashion. Is present for the entire case and assisted with tissue retraction irrigation and debridement and application of wound VAC. Please see Dr. Oliva's operative report for further detail. Patient was awakened and transferred to the recovery room in stable condition. She was given 2 g of IV Ancef for surgical prophylaxis. We will continue IV vancomycin and Zosyn postoperatively. I attest to the content of the Intraoperative Record and any orders documented therein. Any exceptions are noted below.
--- NOTE | 2022-02-12 21:58 | Anesthesiology Progress Note ---
Date of Service February 12, 2022 Anesthesia Post Procedure Vital Signs Vital Signs: Temp Pulse Pulse Pulse Resp BP BP 02/12/22 16:22 37.4 C 86 17 161/85 H 02/12/22 15:00 90 16 148/83 H 02/12/22 13:45 93 H 17 148/83 H 02/12/22 11:46 36.7 C 102 H 20 151/89 H Pulse Ox 02/12/22 16:22 100 02/12/22 15:00 100 02/12/22 13:45 100 02/12/22 11:46 98 Pain Intensity Left Knee: Pain Intensity: 2 Transfer of Care Handoff Completed per policy Notes Mental Status: alert / awake / arousable Patient Amnestic to Procedure: Yes Nausea / Vomiting: adequately controlled Pain: adequately controlled Airway Patency, RR, SpO2: stable & adequate BP & HR: stable & adequate Hydration State: stable & adequate Anesthetic Complications: no major complications apparent and Pt Satisfied with anesthetic care Notes: The patient is awake and comfortable.
[2022-02-12] MEDS ORDERED: ALBUTEROL 0.083% NEBU SOLN 3 ML VIAL INH PRN (22:46)
[2022-02-12] MEDS ORDERED: hydrALAZINE HCL 20 MG/ML VIAL IV PRN (22:46)
[2022-02-12] MEDS ORDERED: FUROSEMIDE 40 MG TAB PO PRN (22:46)
[2022-02-12] MEDS ORDERED: ALBUTEROL HFA 8 GM INHALER INH PRN (22:46)
[2022-02-12] MEDS ORDERED: HYOSCYAMINE SULFATE 0.125 MG TAB PO PRN (22:46)
[2022-02-12] MEDS ORDERED: HYDROmorphone INJ 0.5 MG/0.5 ML SYR IV PRN (22:46)
[2022-02-12] MEDS ORDERED: bisacodyL 10 MG SUPP PR PRN (22:53)
[2022-02-12] MEDS ORDERED: METOCLOPRAMIDE HCL INJ 5 MG/ML 2 ML VIAL IV PRN (22:53)
[2022-02-12] MEDS ORDERED: NALOXONE HCL 0.4 MG/1 ML VIAL/CARP IV PRN (22:53)
[2022-02-12] MEDS ORDERED: MAGNESIUM HYDROXIDE SUSP 30 ML UDC PO PRN (22:53)
[2022-02-12] MEDS ORDERED: ACETAMINOPHEN 500 MG TAB PO PRN (22:53)
[2022-02-12] MEDS ORDERED: SODIUM CHLORIDE 0.9% 1000ML 1,000 ML IV SCH (23:00)
[2022-02-12] MEDS: ACETAMINOPHEN 500 MG TAB PO SCH (23:20)
[2022-02-12] MEDS ORDERED: PIPERACILLIN/TAZOBACTAM 4.5 GM in DEXTROSE 5% 100 ML IV ONE (23:30)
[2022-02-13] MEDS: TERAZOSIN HCL 1 MG CAP PO SCH ×2 (00:14→21:04)
[2022-02-13] MEDS: MONTELUKAST SODIUM 10 MG TABLET PO SCH ×2 (00:14→21:03)
[2022-02-13] MEDS: acetaZOLAMIDE 250 MG TAB PO SCH ×3 (00:15→16:27)
[2022-02-13] MEDS: VANCOMYCIN HCL 1,250 MG in SODIUM CHLORIDE 0.9% 250 ML IV SCH ×2 (00:50→12:30)
[2022-02-13] MEDS: CETIRIZINE HCL 10 MG TABLET PO SCH ×2 (00:53→21:04)
[2022-02-13] MEDS: oxyCODONE HCL IR 5 MG TAB (IMMEDIATE RELEASE) PO PRN ×2 (01:43→16:27)
[2022-02-13] MEDS: PIPERACILLIN/TAZOBACTAM 4.5 GM in DEXTROSE 5% 100 ML IV SCH ×3 (05:48→21:01)
[2022-02-13] MEDS: LEVOTHYROXINE SODIUM 175 MCG TABLET PO SCH (05:52)
[2022-02-13] MEDS: ACETAMINOPHEN 500 MG TAB PO SCH ×3 (05:52→23:23)
[2022-02-13 06:31] LABS: Hematocrit (blood only) 34.4 % (37-47); Hemoglobin 10.6 g/dL (12.0-16.0); Mean Corpuscular Hemoglobin 29.7 pg (25-34); Mean Corpuscular Hgb Conc 30.8 g/dL (32-36); Mean Corpuscular Volume 96.4 fL (80-100); Mean Platelet Volume 10.5 fL (7.4-10.4); Platelet Count 208 K/uL (130-400); RDW Standard Deviation 49.5 fL (36.4-46.3); Red Blood Count 3.57 M/uL (4.2-5.4); White Blood Count 2.85 K/uL (4.8-10.8)
--- NOTE | 2022-02-13 07:17 | Orthopedic Progress Note ---
Date of Service February 13, 2022 Assessment & Plan (1) Wound dehiscence: Plan: POD # 1 s/p I&D LLE and Wound vac placement, patient is also almost 6-week status post left total knee arthroplasty. Continue wound vac, wound care nurse consulted. Continue IV vancomycin and Zosyn for broad-spectrum gram-positive and gram- negative coverage. Weight-bear as tolerated, with walker to assist with ambulation. DVT prophylaxis: Lovenox short-term after her procedure. Foot pumps will start once brings from home. Continue to follow cultures. Resume diet Continue pain control. Covering for Dr. Oliva today who will be back tomorrow. Admission and Anticipated Discharge Date Admission Date: February 12, 2022 Subjective Doing alright. Did not sleep much last night. Physical Exam Physical Exam: LLE: Wound vac in place. Neurovascularly intact. calf soft and non-tender. Results & Data ([facility]) Vital Signs (Past 12 Hours) Vital Signs Temp Pulse Pulse Resp BP Pulse Ox 02/13/22 04:47 36.4 C L 73 16 116/56 L 97 02/13/22 01:38 36.4 C L 88 16 135/79 95 02/13/22 00:36 36.5 C 83 16 143/82 H 98 02/12/22 23:34 36.6 C 73 18 143/83 H 96 02/12/22 23:10 36.6 C 77 18 138/83 97 02/12/22 22:48 36.7 C 83 18 136/78 99 02/12/22 22:20 73 14 135/79 95 02/12/22 22:10 36.5 C 73 14 133/90 96 02/12/22 22:00 73 18 144/79 H 96 02/12/22 21:50 73 13 139/84 99 02/12/22 21:40 81 16 128/70 98 02/12/22 21:30 80 14 132/93 100 02/12/22 21:20 36.6 C 87 16 131/84 100 Laboratory Results Received: 02/12/22-[address]: Bro Oliva M.D. Source: Synovial Fluid OV Order: Ordered: Aer/Blanca Cult/Sm Comments: Hold for 2 weeks Procedure Result Verified Site Gram Stain Final 02/12/22-1458 Gram Stain Result Moderate WBCs Seen No Organisms Seen Aero/Blanca Cult PENDING Blood Cx pending Diagnostic Findings Laboratory Results WBC 2.85 K/uL (4.8-10.8) L 02/13/22 05:34 RBC 3.57 M/uL (4.2-5.4) L 02/13/22 05:34 Hgb 10.6 g/dL (12.0-16.0) L 02/13/22 05:34 Hct 34.4 % (37-47) L 02/13/22 05:34 MCV 96.4 fL (80-100) 02/13/22 05:34 MCH 29.7 pg (25-34) 02/13/22 05:34 MCHC 30.8 g/dL (32-36) L 02/13/22 05:34 RDW Std Deviation 49.5 fL (36.4-46.3) H 02/13/22 05:34 RDW Coeff of Rui 14.0 % (11.5-14.5) 02/13/22 05:34 Plt Count 208 K/uL (130-400) 02/13/22 05:34 MPV 10.5 fL (7.4-10.4) H 02/13/22 05:34 Immature Gran % (Auto) 0.0 % 02/12/22 12:19 Neut % (Auto) 78.3 % 02/12/22 12:19 Lymph % (Auto) 14.6 % 02/12/22 12:19 Clare % (Auto) 5.3 % 02/12/22 12:19 Eos % (Auto) 1.5 % 02/12/22 12:19 Baso % (Auto) 0.3 % 02/12/22 12:19 Neut # (Auto) 3.11 K/uL (1.4-6.5) 02/12/22 12:19 Lymph # (Auto) 0.58 K/uL (1.2-3.4) L 02/12/22 12:19 Clare # (Auto) 0.21 K/uL (0.11-0.59) 02/12/22 12:19 Eos # (Auto) 0.06 K/uL (0-0.5) 02/12/22 12:19 Baso # (Auto) 0.01 K/uL (0-0.2) 02/12/22 12:19 Immature Gran # (Auto) 0.00 K/uL (0.00-0.02) 02/12/22 12:19 ESR 22 mm/hr (0-30) 02/12/22 12:19 Sodium 141 mmol/L (136-145) 02/12/22 12:19 Potassium 3.6 mmol/L (3.5-5.1) 02/12/22 12:19 Chloride 114 mmol/L (98-107) H 02/12/22 12:19 Carbon Dioxide 20 mmol/L (21-32) L 02/12/22 12:19 Anion Gap 7 (3-11) 02/12/22 12:19 BUN 17 mg/dl (6-23) 02/12/22 12:19 Creatinine 0.76 mg/dl (0.6-1.2) 02/12/22 12:19 Est Cr Clr Drug Dosing 89.8 ml/min 02/12/22 12:19 Est GFR ( Amer) 96.1 ml/min 02/12/22 12:19 Est GFR (Non-Af Amer) 82.9 ml/min 02/12/22 12:19 BUN/Creatinine Ratio 22.4 (10-20) H 02/12/22 12:19 Glucose 92 mg/dl (70-99(Fasting)) 02/12/22 12:19 Calcium 8.8 mg/dl (8.5-10.1) 02/12/22 12:19 Total Bilirubin 0.5 mg/dl (0.2-1.0) 02/12/22 12:19 AST 9 U/L (13-39) L 02/12/22 12:19 ALT 6 U/L (7-52) L 02/12/22 12:19 Alkaline Phosphatase 75 U/L (34-104) 02/12/22 12:19 C-Reactive Protein 4.20 mg/dl (0-0.5) H 02/12/22 12:19 Total Protein 6.3 gm/dl (6.0-8.3) 02/12/22 12:19 Albumin 3.8 gm/dl (3.4-5.0) 02/12/22 12:19 Globulin 2.5 gm/dl (2.5-4.0) 02/12/22 12:19 Albumin/Globulin Ratio 1.5 (0.9-2) 02/12/22 12:19 SARS-CoV-2, RNA, NAAT NEGATIVE (NEGATIVE) 02/12/22 12:33
[2022-02-13] MEDS: CYANOCOBALAMIN (B-12) 500 MCG TABLET PO SCH (08:39)
[2022-02-13] MEDS: ASPIRIN 325 MG ECTAB PO SCH ×2 (08:39→21:04)
[2022-02-13] MEDS: POTASSIUM CHLORIDE CRTAB 20 MEQ TABCR PO SCH (08:39)
[2022-02-13] MEDS: DOCUSATE SODIUM 100 MG CAP PO SCH ×2 (08:39→21:03)
[2022-02-13] MEDS: MULTIVITAMIN TAB PO SCH (08:39)
[2022-02-13] MEDS: FLUTICASONE/VILANTEROL 200/25MCG 14 PUFFS/INHALER INH SCH (08:40)
--- NOTE | 2022-02-13 09:37 | Pharmacy Report ---
Pharmacy Vanc AUC Short Note - Date of Service February 13, 2022 - Assessment & Plan Assessment 66 year old F receiving IV vancomycin and zosyn for treatment of wound dehiscence POD#1 s/p I&D and wound vac placement (6 week s/p L total knee arthroplasty). Blood and synovial fluid cultures pending. Day # 2 of antimicrobial therapy. Plan Vancomycin * AUC/NEERAJ is the preferred PK/PD target for vancomycin * AUC guided dosing is effective and associated with decreased risk of nephrotoxicity compared to traditional trough targets * Trough level of 16.9 mcg/mL is predicted to achieve target AUC/NEERAJ of 400-600 mg/L.hr and may be associated with a 13 % risk of nephrotoxicity * Continue dose of 1250 mg IV every 12 hours * Will obtain a trough if therapy continues beyond 48h, or sooner if clinically indicated. Pharmacy will continue to follow and will adjust dose/frequency as necessary. Thank you.
[2022-02-14] MEDS: VANCOMYCIN HCL 1,250 MG in SODIUM CHLORIDE 0.9% 250 ML IV SCH ×3 (00:53→23:09)
[2022-02-14] MEDS: PIPERACILLIN/TAZOBACTAM 4.5 GM in DEXTROSE 5% 100 ML IV SCH (05:29)
[2022-02-14] MEDS: LEVOTHYROXINE SODIUM 175 MCG TABLET PO SCH (05:29)
[2022-02-14] MEDS: ACETAMINOPHEN 500 MG TAB PO SCH ×3 (06:39→23:09)
[2022-02-14 08:55] LABS: Creatinine Clr Calc Pharmacy 77.4 ml/min; Est GFR (African American) 78.3 ml/min; Est GFR (Non-African American) 67.6 ml/min
[2022-02-14] MEDS: DOCUSATE SODIUM 100 MG CAP PO SCH ×2 (09:15→21:05)
[2022-02-14] MEDS: FLUTICASONE/VILANTEROL 200/25MCG 14 PUFFS/INHALER INH SCH (09:15)
[2022-02-14] MEDS: ASPIRIN 325 MG ECTAB PO SCH ×2 (09:16→21:05)
[2022-02-14] MEDS: CYANOCOBALAMIN (B-12) 500 MCG TABLET PO SCH (09:16)
[2022-02-14] MEDS: POTASSIUM CHLORIDE CRTAB 20 MEQ TABCR PO SCH (09:16)
[2022-02-14] MEDS: MULTIVITAMIN TAB PO SCH (09:16)
[2022-02-14] MEDS: acetaZOLAMIDE 250 MG TAB PO SCH ×2 (09:17→16:58)
--- NOTE | 2022-02-14 15:12 | Progress Notes ---
DATE OF NOTE: 02/14/2022. The patient is resting comfortably in bed. No problems are reported. She is afebrile. Her vital si gns are stable. There are no new pertinent labs today. Her blood cultures are negative. The knee j oint culture is negative. Unfortunately, the swab culture of the wound has grown out MRSA. Her dres sing is clean and dry. The wound VAC is functioning properly and there is no erythema. Her neurovas cular function is intact distally. IMPRESSION: Status post left total knee arthroplasty with deep wound infection at this time, not kno wn to be involving the prosthesis. PLAN: We will continue vancomycin and discontinue the Zosyn. Aspirin for DVT prophylaxis. Continue PT and OT. Blood cultures are negative. We will consult with Infectious Diseases. She may need a long-term IV access. Job ID: [id number]
[2022-02-14] MEDS: MONTELUKAST SODIUM 10 MG TABLET PO SCH (21:05)
[2022-02-14] MEDS: TERAZOSIN HCL 1 MG CAP PO SCH (21:05)
[2022-02-14] MEDS: CETIRIZINE HCL 10 MG TABLET PO SCH (21:05)
[2022-02-15] MEDS: oxyCODONE HCL IR 5 MG TAB (IMMEDIATE RELEASE) PO PRN ×2 (00:46→10:08)
[2022-02-15] MEDS: LEVOTHYROXINE SODIUM 175 MCG TABLET PO SCH (05:43)
[2022-02-15] MEDS: ACETAMINOPHEN 500 MG TAB PO SCH ×3 (06:13→22:04)
[2022-02-15 06:47] LABS: Creatinine Clr Calc Pharmacy 73.3 ml/min; Est GFR (African American) 73.4 ml/min; Est GFR (Non-African American) 63.3 ml/min
--- NOTE | 2022-02-15 08:29 | Pharmacy Report ---
Pharmacy Vanc AUC Short Note - Date of Service February 15, 2022 - Assessment & Plan Assessment * 66 year old F receiving vancomycin for treatment of deep wound infection at surgical site w recent TKA, although infection not known to be involving the prosthesis at this time * ID consulted, awaiting input. Possible extended duration of therapy required * Pertinent microbiologic data includes: 02/12 L knee culture growing MRSA (vanco NEERAJ 2) * SCr is gradually increasing - may or may not be clinically significant at this time. Will follow SCr daily Vancomycin * AUC/NEERAJ is the preferred PK/PD target for vancomycin. * Target AUC/NEERAJ of 400-600 mg/L.hr * AUC guided dosing is effective and associated with decreased risk of nephrotoxicity compared to traditional trough targets * *Random* level was obtained today and was 23.4 mcg/mL. Of note - this is NOT a trough level and therefore does not necessarily indicate a supratherapeutic level. However, in this case, anticipated trough is 21.2 mcg/mL and AUC is indeed supratherapeutic at 630 mg/L.hr. * Will decrease dose. Anticipated AUC of 511 mg/L.hr with new regimen * Will continue to monitor random levels instead of troughs to simplify regimen, as AUC guided dosing is not restricted to trough level monitoring Plan * Decrease vancomycin to 1000 mg IV q12h * Random level with AM labs on 02/17 * Further adjustment may be required if SCr continues to climb Pharmacy will continue to follow and will adjust dose/frequency as necessary. Thank you.
--- NOTE | 2022-02-15 10:06 | Progress Notes ---
DATE OF NOTE: 02/15/2022 The patient is resting comfortably in bed. She has been out of bed. Her leg feels somewhat better. She has had no issues or problems. She has been up doing her own physical therapy as well. She has been afebrile. Her vital signs are stable. There are no new labs today except for a vancomy sue trough which is slightly high and will be adjusted according to pharmacy. She does not have palpable pedal pulses. The erythema of her leg is resolved. She still has some te nderness around the wound. Her swelling is diminished down to her chronic lymphedema state. She has 5/5 ankle and toe plantar flexion and eversion strength. Sensation intact. Capillary refill less t kendall 2 seconds. She can bend her knee to 90. There is no erythema, swelling, effusion or tenderness of the remainder of the incision. The Wound VAC is removed and the sponge is removed. There is no purulent drainage, no necrotic tissu e. There is early start of a granulation tissue noted throughout. The Wound VAC changes were done i n conjunction with the wound care nurses who will reapply the wound VAC. The patient is status post a left total knee arthroplasty. She has a distal extraarticular wound inf ection with MRSA. The plan at this time is to continue vancomycin. Wound VAC. Continue PT and OT. Monitor and follow up on her cultures. Mechanicals and aspirin for DVT prophylaxis. She will need home health services for care of her wound VAC. She may need long-term IV access and may need home a ntibiotic therapy. An Infectious Disease consult is pending and I have asked the Infectious Disease doctor to contact me via [facility] text once they have evaluated the patient and we can discuss further a bout the patient's history and plan. Job ID: [id number]
[2022-02-15] MEDS: POTASSIUM CHLORIDE CRTAB 20 MEQ TABCR PO SCH (10:10)
[2022-02-15] MEDS: MULTIVITAMIN TAB PO SCH (10:10)
[2022-02-15] MEDS: acetaZOLAMIDE 250 MG TAB PO SCH ×2 (10:11→17:40)
[2022-02-15] MEDS: CYANOCOBALAMIN (B-12) 500 MCG TABLET PO SCH (10:11)
[2022-02-15] MEDS: FLUTICASONE/VILANTEROL 200/25MCG 14 PUFFS/INHALER INH SCH (10:11)
[2022-02-15] MEDS: DOCUSATE SODIUM 100 MG CAP PO SCH ×2 (10:11→22:04)
[2022-02-15] MEDS: ASPIRIN 325 MG ECTAB PO SCH ×2 (10:11→22:05)
[2022-02-15] MEDS: VANCOMYCIN HCL 1,000 MG in SODIUM CHLORIDE 0.9% 250 ML IV SCH (18:32)
[2022-02-15] MEDS: CETIRIZINE HCL 10 MG TABLET PO SCH (22:05)
[2022-02-15] MEDS: TERAZOSIN HCL 1 MG CAP PO SCH (22:06)
[2022-02-15] MEDS: MONTELUKAST SODIUM 10 MG TABLET PO SCH (22:07)
[2022-02-16] MEDS: LEVOTHYROXINE SODIUM 175 MCG TABLET PO SCH (06:13)
[2022-02-16] MEDS: ACETAMINOPHEN 500 MG TAB PO SCH ×3 (06:13→22:20)
[2022-02-16] MEDS: VANCOMYCIN HCL 1,000 MG in SODIUM CHLORIDE 0.9% 250 ML IV SCH (06:15)
[2022-02-16 07:02] LABS: Creatinine Clr Calc Pharmacy 110.6 ml/min; Est GFR (African American) 109.9 ml/min; Est GFR (Non-African American) 94.8 ml/min
[2022-02-16] MEDS: POTASSIUM CHLORIDE CRTAB 20 MEQ TABCR PO SCH (09:07)
[2022-02-16] MEDS: CYANOCOBALAMIN (B-12) 500 MCG TABLET PO SCH (09:07)
[2022-02-16] MEDS: MULTIVITAMIN TAB PO SCH (09:08)
[2022-02-16] MEDS: DOCUSATE SODIUM 100 MG CAP PO SCH ×2 (09:08→22:19)
[2022-02-16] MEDS: acetaZOLAMIDE 250 MG TAB PO SCH ×2 (09:08→17:18)
[2022-02-16] MEDS: ASPIRIN 325 MG ECTAB PO SCH ×2 (09:08→22:22)
[2022-02-16] MEDS: FLUTICASONE/VILANTEROL 200/25MCG 14 PUFFS/INHALER INH SCH (09:09)
--- NOTE | 2022-02-16 13:07 | Orthopedic Progress Note ---
Date of Service February 16, 2022 Assessment & Plan (1) Wound dehiscence: Plan: POD # 4 s/p I&D LLE and Wound vac placement, patient is also almost 6-week status post left total knee arthroplasty. Continue wound vac, wound care nurse consulted. Continue IV antibiotics as ordered. Weight-bear as tolerated, with walker to assist with ambulation. DVT prophylaxis: ASA 325mg twice daily. Foot pumps will start once brings from home. Cultures + for MRSA Resume diet Continue pain control. Will discuss findings with Dr. Oliva ID consult pending, obtained PICC consent, signed and on chart for possible PICC line. Explained to her that we are awaiting ID consult and then will come up with a plan for discharge. Case management working on wound vac for home. will plan for wound vac change tomorrow AM with wound care nurse. Will continue to follow, plans for discharge to home in the next day or two once ID recommendations received. Admission and Anticipated Discharge Date Admission Date: February 12, 2022 Subjective Patient resting in bed, no complaints of pain. She's "disgusted". States that she hasn't eaten anything in 2 days, doesn't feel well. She attributes that to the antibiotics. Physical Exam Musculoskeletal: Wound vac on left leg functioning. Tolerates ROM of left knee. No effusion, no erythema, warmth, or drainage. Skin mildly sore around wound, mildly indurated, but improving. Chronic distal edema unchanged. Results & Data ([facility]) Vital Signs (Past 12 Hours) Vital Signs Temp Pulse Resp BP Pulse Ox 02/16/22 07:26 36.7 C 93 H 18 164/87 H 97 Laboratory Results 02/16/22 02/16/22 Range/Units 11:53 05:54 Creatinine 0.63 D (0.6-1.2) mg/dl Est Cr Clr Drug Dosing 110.6 ml/min Est GFR ( Amer) 109.9 ml/min Est GFR (Non-Af Amer) 94.8 ml/min Random Vancomycin 20.5 H (10-20) mcg/ml
--- NOTE | 2022-02-16 13:15 | Pharmacy Report ---
Pharmacy PK ABX Note - Date of Service February 16, 2022 - Assessment and Plan Assessment 66 year old F receiving vancomycin for treatment of deep wound infection at surgical site w recent TKA, although infection not known to be involving the prosthesis at this time * ID consulted, awaiting input. Possible extended duration of therapy required * Pertinent microbiologic data includes: 02/12 L knee culture growing MRSA (vanco NEERAJ 2) Plan Vancomycin * Current regimen: 1000 mg IV every 12 hours * Random level obtained 02/16/22 resulted as 20.5 mcg/mL. This is NOT predicted to achieve target AUC/NEERAJ of 400-600 mg/L.hr * Given vancomycin NEERAJ of 2 and apparent return to baseline renal function, will change back to 1250 mg IV every 12 hours * Will repeat level in the next 48-72 hours if therapy is continued and/or change in patient clinical status Pharmacy will continue to follow and will adjust dose/frequency as necessary. Thank you. Pharmacy has transitioned to AUC monitoring for vancomycin. It is the preferred PK/PD target and is associated with decreased risk of nephrotoxicity compared to traditional trough targets.
[2022-02-16] MEDS: VANCOMYCIN HCL 1,250 MG in SODIUM CHLORIDE 0.9% 250 ML IV SCH (17:17)
[2022-02-16] MEDS: MONTELUKAST SODIUM 10 MG TABLET PO SCH (22:21)
[2022-02-16] MEDS: CETIRIZINE HCL 10 MG TABLET PO SCH (22:21)
[2022-02-16] MEDS: TERAZOSIN HCL 1 MG CAP PO SCH (22:21)
[2022-02-17] MEDS: VANCOMYCIN HCL 1,250 MG in SODIUM CHLORIDE 0.9% 250 ML IV SCH (05:05)
[2022-02-17] MEDS ORDERED: VANCOMYCIN TROUGH ONE (05:30)
[2022-02-17] MEDS: LEVOTHYROXINE SODIUM 175 MCG TABLET PO SCH (05:51)
[2022-02-17] MEDS: ACETAMINOPHEN 500 MG TAB PO SCH ×3 (05:52→22:47)
[2022-02-17] MEDS: DOCUSATE SODIUM 100 MG CAP PO SCH ×2 (07:23→21:19)
[2022-02-17] MEDS: CYANOCOBALAMIN (B-12) 500 MCG TABLET PO SCH (08:43)
[2022-02-17] MEDS: acetaZOLAMIDE 250 MG TAB PO SCH ×2 (08:43→17:19)
[2022-02-17] MEDS: MULTIVITAMIN TAB PO SCH (08:43)
[2022-02-17] MEDS: FLUTICASONE/VILANTEROL 200/25MCG 14 PUFFS/INHALER INH SCH (08:44)
[2022-02-17] MEDS: POTASSIUM CHLORIDE CRTAB 20 MEQ TABCR PO SCH (08:44)
[2022-02-17] MEDS: ASPIRIN 325 MG ECTAB PO SCH ×2 (08:45→21:21)
[2022-02-17 08:52] LABS: Creatinine Clr Calc Pharmacy 105.6 ml/min; Est GFR (African American) 108.2 ml/min; Est GFR (Non-African American) 93.4 ml/min
[2022-02-17] MEDS: oxyCODONE HCL IR 5 MG TAB (IMMEDIATE RELEASE) PO PRN (11:04)
[2022-02-17] MEDS: DAPTOmycin 475 MG in SYRINGE 0 ML IV SCH (15:00)
[2022-02-17] MEDS: TERAZOSIN HCL 1 MG CAP PO SCH (21:21)
[2022-02-17] MEDS: MONTELUKAST SODIUM 10 MG TABLET PO SCH (21:21)
[2022-02-17] MEDS: rifAMPin 300 MG CAPSULE PO SCH (21:22)
[2022-02-17] MEDS: CETIRIZINE HCL 10 MG TABLET PO SCH (21:22)
[2022-02-18] MEDS: ACETAMINOPHEN 500 MG TAB PO SCH ×2 (06:02→15:07)
[2022-02-18] MEDS: LEVOTHYROXINE SODIUM 175 MCG TABLET PO SCH (06:02)
[2022-02-18 08:16] LABS: Creatinine Clr Calc Pharmacy 107.2 ml/min; Est GFR (African American) 108.7 ml/min; Est GFR (Non-African American) 93.8 ml/min
[2022-02-18] MEDS: DOCUSATE SODIUM 100 MG CAP PO SCH (09:08)
[2022-02-18] MEDS: acetaZOLAMIDE 250 MG TAB PO SCH (09:11)
[2022-02-18] MEDS: CYANOCOBALAMIN (B-12) 500 MCG TABLET PO SCH (09:11)
[2022-02-18] MEDS: rifAMPin 300 MG CAPSULE PO SCH (09:11)
[2022-02-18] MEDS: MULTIVITAMIN TAB PO SCH (09:11)
[2022-02-18] MEDS: FLUTICASONE/VILANTEROL 200/25MCG 14 PUFFS/INHALER INH SCH (09:11)
[2022-02-18] MEDS: ASPIRIN 325 MG ECTAB PO SCH (09:11)
[2022-02-18] MEDS: POTASSIUM CHLORIDE CRTAB 20 MEQ TABCR PO SCH (09:11)
[2022-02-18] MEDS: DAPTOmycin 475 MG in SYRINGE 0 ML IV SCH (13:44)
--- NOTE | 2022-02-18 14:52 | Orthopedic Progress Note ---
Date of Service February 18, 2022 Assessment & Plan (1) Wound dehiscence: Plan: POD # 6 s/p I&D LLE and Wound vac placement, patient is also almost 6-week status post left total knee arthroplasty. Continue wound vac, wound care nurse consulted. Continue IV antibiotics as ordered. Weight-bear as tolerated, with walker to assist with ambulation. DVT prophylaxis: ASA 325mg twice daily. Foot pumps will start once brings from home. Cultures + for MRSA Resume diet Continue pain control. Started Rifampin yesterday as well as IV dapto. She got her dose of Dapto today. Rifampin sent to pharmacy. Wound vac approved for home. She has wound care clinic appts set up and outpatient appts with Dr. Oliva scheduled. She will also re-start outpatient PT. Plan for discharge to home today with her . HH to be at her house tomorrow. All questions answered, she understands and agrees with the plan. Admission and Anticipated Discharge Date Admission Date: February 12, 2022 Subjective Patient resting in bed, ready to go home today. She has her home vac, wound care clinic appt's set up, antibiotics are coming tomorrow along with home nurse. She denies any pain. Physical Exam Musculoskeletal: left knee wound vac in place, functioning. Able to independently SLR LLE, full left knee ROM. left knee nontender. No effusion, no erythema, no warmth. Results & Data ([facility]) Vital Signs (Past 12 Hours) Vital Signs Temp Pulse Resp BP Pulse Ox 02/18/22 07:15 36.6 C 80 16 174/82 H 99 Laboratory Results 02/18/22 Range/Units 07:26 Creatinine 0.65 (0.6-1.2) mg/dl Est Cr Clr Drug Dosing 107.2 ml/min Est GFR ( Amer) 108.7 ml/min Est GFR (Non-Af Amer) 93.8 ml/min
--- NOTE | 2022-02-19 12:43 | Orthopedic Progress Note ---
Date of Service February 17, 2022 Assessment & Plan (1) Wound dehiscence: Plan: POD # 5 s/p I&D LLE and Wound vac placement, patient is also almost 6-week status post left total knee arthroplasty. Continue wound vac, wound care nurse consulted. Continue IV antibiotics as ordered. Weight-bear as tolerated, with walker to assist with ambulation. DVT prophylaxis: ASA 325mg twice daily. Home compression devices Cultures + for MRSA Resume diet Continue pain control. ID consult pending. - Plans for that to be completed around 1030. We will await their recommendations. PICC consent on chart. Case management working on home health nursing, home wound vac authorization. She will need outpatient wound care appointments as well for wound vac changes. Dr. Oliva present for today's visit. All questions answered, she understands and agrees with the plan. Admission and Anticipated Discharge Date Admission Date: February 12, 2022 Subjective Patient doing well. She would like to go home. She is still waiting for an infectious disease consult. She is not having any pain in her left knee. She has been out of bed with assistance. They are working on a home VAC. Her wound VAC was changed this morning. Physical Exam Musculoskeletal: Exam of her left knee: Wound VAC is in place and functioning. She is able to independently straight leg raise. Distal edema which is chronic in her left lower extremity. Toes move well. Normal distal sensation. She has full range of motion of her left knee to about 95 degrees. No effusion to her left knee. No erythema or warmth of the left knee. The rest of her incision is healed and benign. No active drainage.
--- NOTE | 2022-02-19 12:47 | Discharge Summary ---
Date of Service February 19, 2022 Admission HPI Per Admitting Provider Patient is a pleasant 66-year-old female who presented to the office today with complaints of an open wound to her left knee. She is status post left total knee arthroplasty by Dr. Oliva on December 29, 2021. She then developed some delayed surgical wound healing and underwent an irrigation and debridement of her left total knee wound on January 19, 2022. She was placed on IV Ancef and sent home on Keflex. Her intraoperative cultures grew Methicillin sensitive Staph aureus. On February 05 she presented to the office for wound check and her incision appears to be completely healed. However retaining sutures were removed and Steri-Strips were applied. Over the last 2 days she has developed some increased burning sensation, redness and warmth at the distal aspect of her total knee incision. She states has been getting more painful throughout the last day or so. She denies any chills but did have a fever of 101.5 last evening. She states that she was ambulating throughout her home and developed some drainage down her leg and noticed a lot of bleeding coming from the distal aspect of the incision. She denies having any type of fluctuance there or a bump or pimple that ruptured. She states that incision just opened up and it started bleeding. She called this morning to Get further instructions on what to do. We asked her to come directly to the office. She had already had breakfast. While in the office she was found to have a small centimeter circumferential wound at the distal aspect of her incision from her previous I&D site. It was actively draining some serous sanguinous bloody type fluid. She had a trace effusion to her left knee joint. The rest of the incision the left knee itself appears benign with no erythema or warmth. She tolerates gentle range of motion and was progressing nicely in physical therapy. She continues to use a walker to assist with ambulation. Joint aspiration of her left knee was performed today and sent for stat cell count and fluid analysis, aerobic and anaerobic cultures. We also did a wound culture of the open wound itself. And this was sent for anaerobic and aerobic cultures. We elected to do a direct admission to the hospital although they are not doing that currently. She was sent to the emergency room and placed on the operating room schedule. She was made NPO. She was started on IV vancomycin and Zosyn. She will be n.p.o. it with plans for surgery later today for an irrigation debridement of her left knee wound, possible irrigation debridement and probably exchange of her left knee joint and possible wound VAC application. Discharge Data Consultations 02/14/22 13:25 Consult Infectious Diseases Routine Procedures Performed Operation Date: 02/12/22 12:10 Actual Procedures p Left Knee Wound Incision and Drainage, Wound Vac Application(Left) - Bro Oliva MD Hospital Course (1) Wound dehiscence: Patient was admitted to [facility] on Saturday, February 12, 2022 after being seen in the office with an open wound. She is almost 6 weeks status post a left total knee arthroplasty. On Tuesday morning of her wound opened up and started draining. She called the office and was brought in immediately for an appointment. She was Then sent to the emergency room for plans for surgical intervention, irrigation and debridement of her left knee wound that afternoon. She was made NPO. She underwent an irrigation and debridement of the left knee wound with Dr. Oliva on February 12, 2022. This was performed under general anesthesia. She tolerated the procedure well without any intraoperative complications. A wound VAC was placed on her left knee at the time of surgery as well. She was allowed out of bed, weight-bear as tolerated left lower extremity with the assistance of a walker. Cultures of the left knee wound were obtained in the office prior to admission to the hospital. They did grow out MRSA. She also had a left knee aspiration and culture performed in the office which have been negative. These cultures were followed on a daily basis. She was placed on IV Zosyn and vancomycin for broad-spectrum coverage after her procedure. She was seen and evaluated by physical therapy and Occupational Therapy. She was also followed by case management. A wound care consult was placed for wound VAC changes every Tuesday and Tuesday. Due to her positive cultures and infectious disease consult was placed. This was performed on Thursday, February 17, 2022. Recommendations were for 2 to 3 weeks of IV antibiotics either vancomycin or daptomycin and adding in rifampin 300 mg twice daily. Her antibiotics were changed on Tuesday, rifampin was added and daptomycin was started. Blood cultures were performed and were negative. A PICC line consent was obtained on Wednesday, February 16, 2022 and was placed on Wednesday, February 17, 2022. She did well with receiving her antibiotics through the PICC line. Home VAC was approved and she was given 1 to rent. Appointments were scheduled with Dr. Oliva to follow-up as an outpatient as well as the outpatient wound care clinic through [facility] for her wound VAC changes. She was given oxycodone as needed for pain control. Regular diet was continued during her inpatient stay. Her regular home medications were continued. She did develop some postoperative nausea from what she thinks is the antibiotics. She did not have much of an appetite during her inpatient stay. She did not develop any diarrhea but did have urgency to have a bowel movement. She continued with ice and elevation to her left knee as well as her regular postoperative rehab for a total knee replacement. Her vital signs remained stable during her inpatient stay. She did not become febrile. Her joint contours have remained no growth to date but are being held for 14 days. She does not have appear to have a prior prosthetic joint infection. This wound is extra-articular. She was discharged to her home in stable condition on February 18, [address], orders for IV daptomycin and rifampin. Refill of oxycodone was sent to her pharmacy as well as tramadol. She can continue her outpatient physical therapy appointments. Wound care appointments were arranged and follow-up as scheduled with Dr. Oliva. Discharge instructions were reviewed. She understands and agrees with the plan.
== END 2022-02-18 17:25 | disposition home health service (06) | DRG 908 ==
LOC: ED 11:44 → OR 16:20 → 3E 22:15